=== PATIENT | male | born 1950 | race Caucasian/White ===

== ENCOUNTER → 2018-02-07 02:33 | Outpatient (CLI) | payer MEDICARE, OTHER, SELFPAY ==
[2018-02-07 11:27] LABS: Abs Immature Grans 0.03 k/cumm (0.0-0.09); Absolute Basophil Count 0.03 k/cumm (0.0-0.2); Absolute Eosinophil Count 0.18 k/cumm (0.0-0.7); Absolute Lymphocyte Count 1.61 k/cumm (1.2-3.4); Absolute Monocyte Count 0.46 k/cumm (0.11-0.7); Absolute Neutrophil Count 5.44 k/cumm (1.2-6.7); Basophils % 0.4; Eosinophils % 2.3; HCT 45.7 % (40.0-50.0); HGB 14.8 g/dL (13.5-17.5); Immature Grans % 0.4; Lymphocytes % 20.8; Mean Corp. HGB Concentration 32.4 g/dL (32.0-36.0); Mean Corpuscular Volume 92.5 fL (80-95); Mean Platelet Volume 10.8 fL (8.0-11.0); Monocytes % 5.9; Neutrophils % 70.2; Platelet Count 170 x1000/uL (130-400); RBC 4.94 m/cumm (4.50-6.00); White Blood Cell Count 7.75 k/cumm (4.4-10.8)
[2018-02-07 11:43] LABS: ALT 38 U/L (12-78); AST 17 U/L (15-37); Albumin 3.8 g/dL (3.4-5.0); Alkaline Phosphatase 75 U/L (46-116); Anion Gap 11.5 mmol/L (3-11); BUN 19 mg/dL (7-18); Bilirubin, Total 0.7 mg/dL (0.2-1.0); CO2 23.5 mmol/L (21.0-32.0); CREATININE 0.97 mg/dL (0.70-1.30); Chloride 105 mmol/L (98-107); Cholesterol 199 mg/dL (50-200); Glucose 128 mg/dL (70-100); HDL Cholesterol 41 mg/dL (40-60); LDL CHOLESTEROL 90 mg/dL (<100); Potassium 4.4 mmol/L (3.5-5.1); Sodium 140 mmol/L (136-145); TSH (W/Ref FT4) 2.03 uIU/mL (0.358-3.74); Total Protein 6.9 g/dL (6.4-8.2); Triglyceride 406 mg/dL (30-150)
[2018-02-07 12:02] LABS: Calcium 8.8 mg/dL (8.5-10.1)
== END ==
PROVIDERS: PCP Internal Medicine; Visit Provider Internal Medicine
DX: E78.5 Hyperlipidemia, unspecified (principal); D64.9 Anemia, unspecified; I10 Essential (primary) hypertension; G47.33 Obstructive sleep apnea (adult) (pediatric); E10.9 Type 1 diabetes mellitus without complications
CPT/HCPCS: 36415; 80053; 80061; 83721; 83036; 84443; 85025

== ENCOUNTER 2018-08-07 02:25 | Outpatient (CLI) | payer MEDICARE, OTHER, SELFPAY ==
[2018-08-07 10:54] LABS: Hemoglobin A1C 7.1 % (4.5-6.2)
[2018-08-07 11:03] LABS: ALT 39 U/L (12-78); AST 22 U/L (15-37); Albumin 3.6 g/dL (3.4-5.0); Alkaline Phosphatase 71 U/L (46-116); Anion Gap 11.3 mmol/L (3-11); BUN 17 mg/dL (7-18); Bilirubin, Total 1.2 mg/dL (0.2-1.0); CO2 23.7 mmol/L (21.0-32.0); CREATININE 1.02 mg/dL (0.70-1.30); Calcium 8.7 mg/dL (8.5-10.1); Chloride 104 mmol/L (98-107); Cholesterol 201 mg/dL (50-200); Glucose 143 mg/dL (70-100); HDL Cholesterol 45 mg/dL (40-60); LDL CHOLESTEROL 96 mg/dL (<100); Potassium 4.5 mmol/L (3.5-5.1); Sodium 139 mmol/L (136-145); Total Protein 6.8 g/dL (6.4-8.2); Triglyceride 327 mg/dL (30-150)
[2018-08-08 09:58] LABS: PSA, Screening 0.7 ng/ml (0-4.5)
== END 2018-08-07 02:45 ==
PROVIDERS: PCP Internal Medicine; Visit Provider Internal Medicine
DX: E11.8 Type 2 diabetes mellitus with unspecified complications (principal); E78.5 Hyperlipidemia, unspecified; J34.89 Other specified disorders of nose and nasal sinuses; Z12.5 Encounter for screening for malignant neoplasm of prostate
CPT/HCPCS: 36415; 80053; 80061; 83721; 84153; 83036

== ENCOUNTER 2018-08-09 13:41 | Outpatient (CLI) | payer MEDICARE, OTHER, SELFPAY ==
--- NOTE | 2018-08-09 10:30 | DI.RAD_ITS ---
SYMPTOMS/DIAGNOSIS: LEFT HAND PAIN X 6 MONTHS, M79.802 LEFT HAND: Three views. No priors. At the 1st carpometacarpal joint, there is joint space narrowing. There are also large osteophytes present. At the interphalangeal joints of the hand, there is mild periarticular spurring. The findings are most marked at the distal interphalangeal joint of the middle finger and the interphalangeal joint of the thumb. No acute fracture, dislocation, lytic or sclerotic lesion is seen. The soft tissues are unremarkable. IMPRESSION: Osteoarthritis of the left hand.
[2018-08-09 12:36] LABS: Uric Acid 5.8 mg/dL (3.5-7.2)
== END 2018-08-09 14:01 ==
PROVIDERS: PCP Internal Medicine; Visit Provider Internal Medicine
DX: M79.645 Pain in left finger(s) (principal); M19.042 Primary osteoarthritis, left hand
CPT/HCPCS: 36415; 73130; 84550

== ENCOUNTER 2019-08-24 00:16 | Outpatient (CLI) | payer MEDICARE, OTHER, SELFPAY ==
[2019-08-24 11:12] LABS: Abs Immature Grans 0.02 k/cumm (0.0-0.09); Absolute Basophil Count 0.03 k/cumm (0.0-0.2); Absolute Eosinophil Count 0.19 k/cumm (0.0-0.7); Absolute Monocyte Count 0.41 k/cumm (0.11-0.7); Absolute Neutrophil Count 3.92 k/cumm (1.2-6.7); Basophils % 0.5; Eosinophils % 3.2; HCT 43.2 % (40.0-50.0); HGB 14.5 g/dL (13.5-17.5); Immature Grans % 0.3 %; Lymphocytes % 23.5; Mean Corp. HGB Concentration 33.6 g/dL (32.0-36.0); Mean Corpuscular Hemoglobin 30.8 pg (27.0-33.0); Mean Corpuscular Volume 91.7 fL (80-95); Mean Platelet Volume 9.7 fL (8.0-11.0); Monocytes % 6.9; Neutrophils % 65.6; Platelet Count 199 x1000/uL (130-400); RBC 4.71 m/cumm (4.50-6.00); RBC Distribution Width 13.8 % (11.8-14.1); White Blood Cell Count 5.97 k/cumm (4.4-10.8)
[2019-08-24 11:24] LABS: Hemoglobin A1C 7.5 % (3.8-5.6)
[2019-08-24 11:28] LABS: ALT 41 U/L (16-63); AST 20 U/L (15-37); Albumin 3.9 g/dL (3.4-5.0); Alkaline Phosphatase 68 U/L (46-116); Anion Gap 10.5 mmol/L (3-11); BUN 23 mg/dL (7-18); Bilirubin, Total 0.8 mg/dL (0.2-1.0); CO2 24.5 mmol/L (21.0-32.0); CREATININE 0.94 mg/dL (0.70-1.30); Chloride 104 mmol/L (98-107); Cholesterol 226 mg/dL (<200); Glucose 140 mg/dL (74-106); HDL Cholesterol 37 mg/dL (40-60); Potassium 4.6 mmol/L (3.5-5.1); Sodium 139 mmol/L (136-145); Total Protein 6.8 g/dL (6.4-8.2); Triglyceride 509 mg/dL (<150)
[2019-08-24 11:40] LABS: LDL CHOLESTEROL 91 mg/dL (<100)
== END 2019-08-24 00:36 ==
PROVIDERS: PCP Internal Medicine; Visit Provider Internal Medicine
DX: E11.9 Type 2 diabetes mellitus without complications (principal); E78.5 Hyperlipidemia, unspecified; I10 Essential (primary) hypertension; R50.9 Fever, unspecified
CPT/HCPCS: 36415; 80053; 80061; 83721; 83036; 85025

== ENCOUNTER → 2019-09-05 13:36 | Outpatient (BNVA) | payer MEDICARE, OTHER, SELFPAY ==
--- NOTE | 2019-09-10 07:28 | ROE_ITS ---
DATE OF PROCEDURE September 05, 2019 PREOPERATIVE DIAGNOSIS Suture granuloma. POSTOPERATIVE DIAGNOSIS Suture Granuloma. SURGEON Josette Wakefield M.D. ANESTHESIA Local. ESTIMATED BLOOD LOSS Less than 1 cc. COMPLICATIONS: The patient tolerated the procedure without complication. INDICATIONS The patient is a 69-year-old male seen at the request of his primary care physician today on 09/05/19 and is here today for removal of a suture granuloma. The patient had a hernia repair back in the s with mesh that was sewn in with Prolene. He has two s utures that he spit within the first year of his procedure and have been sore festering areas for t he last 20 plus years. He has had the previous one removed and is here today to have the second one r emoved. He has never spit any stitches other than these first two, and these showed up within the st year or two of the initial surgery. He has an obvious Prolene stitch protruding at approximately t he 4 o'clock position around his old suture site. The site appears intact and no further herniation. There are no signs are acute infection. Informed consent was obtained, explaining the risks and benefits of the procedure including, not limi josephine to bleeding, infection, scarring, infecting the mesh, complications of local anesthetic, spitting more sutures and other unforetold complications. The area is obvious and does not need to be marked. DESCRIPTION OF PROCEDURE The patient was placed in the supine position, prepped and draped in the usual sterile fashion using a ChloraPrep scrub solution. Time-out was done. He it is infiltrated with 10 cc of 1% lidocaine plain with bicarb. The old suture site, which shows chronically infected tissue was excised and the suture was removed. The patient wishes to have the suture so he can show his , and it was cleaned off and placed in a sterile bio bag. All the nonviable tissue was removed. There was minimal bleeding. Pressure was held . Closed with two stitches of #3-0 Prolene. A sterile compression dressing is applied. The patient ca n come back in 10 days to have the sutures removed, or his sister who is an OR nurse can remove them for him in 10 days' time, which would be TuesdaySeptember 13. He can use ice and ibuprofen or Tylenol for pain. He was given instructions in would care activity and warning signs. He can come in on September 13 and have us evaluate the wound or just have his sister do it. If he has any questions or concerns to please contact the office.
== END ==
PROVIDERS: PCP Internal Medicine; Referring Provider Internal Medicine; Visit Provider Surgery
DX: T81.89XA Other complications of procedures, not elsewhere classified, initial encounter (principal); M60.28 Foreign body granuloma of soft tissue, not elsewhere classified, other site
CPT/HCPCS: 10120; 99202

== ENCOUNTER 2019-12-12 02:26 | Outpatient (CLI) | payer MEDICARE, OTHER, SELFPAY ==
[2019-12-12 09:26] LABS: Hemoglobin A1C 6.9 % (3.8-5.6)
[2019-12-12 10:05] LABS: Cholesterol 211 mg/dL (<200); HDL Cholesterol 36 mg/dL (40-60); Triglyceride 529 mg/dL (<150)
[2019-12-12 10:16] LABS: LDL CHOLESTEROL 78 mg/dL (<100)
== END 2019-12-12 02:46 ==
PROVIDERS: PCP Nurse Practitioner; Visit Provider Nurse Practitioner
DX: E11.65 Type 2 diabetes mellitus with hyperglycemia (principal); I10 Essential (primary) hypertension; E78.5 Hyperlipidemia, unspecified; R33.9 Retention of urine, unspecified
CPT/HCPCS: 36415; 80061; 83721; 83036; 84154

== ENCOUNTER 2020-01-17 10:07 | Outpatient (CLI) | payer MEDICARE, OTHER, SELFPAY ==
--- NOTE | 2020-01-17 13:15 | DI.RAD_ITS ---
EXAM: XR FOOT LT COMPLETE CLINICAL HISTORY: contusion left foot,[id number]. TECHNIQUE: 2D digital imaging was performed. COMPARISON: No exams were available for comparison FINDINGS: BONES: No acute fracture is present. No bony destructive lesion is seen. JOINTS: No dislocation present. SOFT TISSUE: Normal. IMPRESSION: Unremarkable radiographs of the left foot. DATA REPOSITORY: RADIATION DOSE DELIVERED:
== END 2020-01-17 10:27 ==
PROVIDERS: PCP Nurse Practitioner; Visit Provider Nurse Practitioner
DX: S90.32XA Contusion of left foot, initial encounter (principal)
CPT/HCPCS: 73630

== ENCOUNTER → 2020-01-25 10:16 | Outpatient (BNVA) | payer MEDICARE, OTHER, SELFPAY | PROVIDERS: PCP Nurse Practitioner; Referring Provider Nurse Practitioner; Visit Provider Physical Therapy Assistant | DX: Z12.11 Encounter for screening for malignant neoplasm of colon (principal); Z86.010 Personal history of colon polyps; I10 Essential (primary) hypertension; E11.9 Type 2 diabetes mellitus without complications ==

== ENCOUNTER 2020-06-03 03:37 | Outpatient (CLI) | payer MEDICARE, OTHER, SELFPAY ==
[2020-06-03 12:48] LABS: Calculated LDL 93 mg/dL (<100); Cholesterol 200 mg/dL (<200); HDL Cholesterol 42 mg/dL (40-60); Triglyceride 328 mg/dL (<150)
[2020-06-03 12:57] LABS: Hemoglobin A1C 7.3 % (<5.7)
== END 2020-06-03 03:57 ==
PROVIDERS: PCP Nurse Practitioner; Visit Provider Nurse Practitioner
DX: E11.65 Type 2 diabetes mellitus with hyperglycemia (principal); E78.2 Mixed hyperlipidemia
CPT/HCPCS: 36415; 80061; 83036

== ENCOUNTER → 2020-07-04 08:51 | Outpatient (BNVA) | payer MEDICARE, OTHER, SELFPAY | PROVIDERS: PCP Nurse Practitioner; Referring Provider Nurse Practitioner; Visit Provider Physical Therapy Assistant | DX: Z12.11 Encounter for screening for malignant neoplasm of colon (principal); Z86.010 Personal history of colon polyps; I10 Essential (primary) hypertension ==

== ENCOUNTER 2020-07-25 02:02 | Outpatient (CLI) | payer MEDICARE, OTHER, SELFPAY ==
[2020-07-26 11:29] LABS: COVID-19 RT-PCR UVMMC Result Negative (Negative)
== END 2020-07-25 02:03 | disposition home or self-care (01) ==
LOC: LBO 02:03
PROVIDERS: PCP Nurse Practitioner; Visit Provider Surgery
DX: Z20.822 Contact with and (suspected) exposure to COVID-19 (principal); Z01.818 Encounter for other preprocedural examination
CPT/HCPCS: U0003; U0005

== ENCOUNTER 2020-07-29 08:24 | Day surgery (SDC) | payer MEDICARE, OTHER, SELFPAY ==
[2020-07-29 08:35] VITALS: BP 149/66; PULSE 83; RESP 18; TEMP 36.4; O2SAT 95
[2020-07-29] MEDS: Lactated Ringers 1,000 ML 80 ML IV (09:08)
--- NOTE | 2020-07-29 10:10 | BOWEL_PTH ---
PATIENT: Vince Vazquez I LOC: [facility] U#:[id number] AGE/SX: 69/M ROOM: RE07/29/[address]: Josette Wakefield : 1950 BED: DIS: 07/29/2020 SPEC #: [id number] RECD: 07/29/20 12:07 STATUS: RAJINDER REAmber #: [id number] GIOVANNI: 07/29/20 10:[address]: Josette Wakefield DEPT: Surgical Specimen RECD BY: Olga Smith ENTERED: 07/29/20 12:08 SP TYPE: Bowel OTHR DR: Rhonda Mesa, PhD [employer] Tissues: 1 - BIOPSY BOWEL 2 - BIOPSY BOWEL Procedures: GROSS AND MICRO LEVEL 4 Comments: [id number]
--- NOTE | 2020-07-29 10:55 | W.COLOREPORT ---
Date of service: 07/29/20 Time of Service: 10:55 Colonoscopy Report Date of procedure: 07/29/20 Pre-op diagnosis general: A. polyps Post-op diagnosis procedure note: same (and tics- moderate ) Procedure: polypectomy x5 Surgeon: Josette Wakefield Anesthesia proc note operative: GETA Estimated blood loss (mL): 3 Pathology: other Complications: None Disposition: same day Prep: Miralax/Dulcolax Retraction Time: 30 mins Procedure Description: After informed consent was obtained the patient was taken to the procedure room and placed in a left decubitous position. Monitors were applied and a time out was done. The patients name, date of , procedure, allergies to medications and metal in their body was reviewed. The patient was then sedated. Once sedated and comfortable a rectal exam was done. External exam was normal. Internal exam revealed a normal sphincter tone and no palpable masses. The scope was then introduced and retrofelexed. No internal hemorrhoids were identified. The scope was then advanced to the cecum w/out difficulty. The colon has poor tone. The TI and appendiceal orifice were identified. The prep was adequate. The scope was then slowly retracted over 30 minutes back into the rectum. He has multiple polyps that are reviewed. He has x2 .5 mm polyps they removed with a hot polypectomy forcep in a single bite. He has a 0.75 cm polyp in the cecum, that is slightly pedunculated, and removed with 2 bites of a hot forcep. He has a flat 1 cm polyp on a fold in the cecum that is removed with a hot snare. All specimens are retrieved there is no significant bleeding noted. The snared area does not require clip. He has another polyp at 70 cm that is 0.5 cm flat that is removed with a hot polypectomy forcep. He has moderate to severe diverticula that are confined to the sigmoid colon. There is no signs of active bleeding or infection.. His colon is somewhat floppy and does not have The scope was removed and the patient was woken up and taken back to Same day surgery in stable condition. The patient tolerated the procedure well and there were no immediate complications. Follow up: The patient should follow up in 3 years if still healthy for anesthesia, unless they develop changes in bowel habits or other new gastrointestinal complaints.
--- NOTE | 2020-07-29 11:05 | PDOC.DSDIS_ITS ---
Discharge Plan Disposition Patient Disposition: HOME Condition: Good Discharge Details Reason For Visit: colon scope Attending Provider: Josette Wakefield Primary Care Provider: Rhonda Mesa Home Meds and New Rx's Prescriptions: Continued multivitamin Tablet 1 tab PO DAILY RF: 0 vitamin B complex [B Complex-Vitamin B12] Tablet 1 tab PO DAILY RF: 0 omega 1-vgs-gsp-fish oil [Fish Oil] 1,000 mg (120 mg-180 mg) capsule 1 cap PO DAILY RF: 0 ascorbic acid (vitamin C) 1,000 mg tablet 1 gm PO DAILY RF: 0 Shingrix (PF) 50 mcg/0.5 mL suspension for reconstitution 0.5 ml IM ONCE Qty: 1 RF: 1 (DME) FreeStyle Lite Strips 1 EACH strip 1 ea Miscellaneous DAILY Qty: 100 RF: 3 (DME) lancets [FreeStyle Lancets] 1 EACH misc 1 ea Miscellaneous DAILY Qty: 100 RF: 3 atorvastatin [Lipitor] 80 mg tablet 80 mg PO DAILY Qty: 90 RF: 4 lisinopril 10 mg tablet 10 mg PO DAILY Qty: 90 RF: 3 metformin 1,000 mg tablet 1,000 mg PO BID Qty: 180 RF: 3 glyburide 5 mg tablet 10 mg PO DAILY Qty: 180 RF: 3 Discontinued polyethylene glycol 3350 17 gram/dose powder 238 g PO ONCE Qty: 238 RF: 0 bisacodyl [Dulcolax (bisacodyl)] 5 mg tablet,delayed release (DR/EC) 5 mg PO ONCE Qty: 4 RF: 0 ibuprofen 200 mg tablet 800 mg PO ONCE PRNRF: 0 naproxen [EC-Naproxen] 500 mg tablet,delayed release (DR/EC) 500 mg PO Q12H PRN (Reason: pain) Qty: 40 RF: 0 aspirin [Lo-Dose Aspirin] 81 MG tablet,delayed release (DR/EC) 81 mg PO DAILY RF: 0 Discharge Instructions Additional Instructions: Findings:x5 polyps. Will send a letter in 3-4 weeks with pathology results. Moderate diverticula. Make sure you are moving your bowels on a regular/daily basis and not straining. Follow up:repeat scope in 3 yrs time, if still healthy for anesthesia. Please call if you develop: fevers >101.5 Nausea or Vomiting Abdominal pain that is not transient DAY SURGERY UNIT POST COLONOSCOPY INSTRUCTIONS 1. Because there will be medication in your system for the next 24 hours, you may feel a little sleepy. Your coordination will be affected. Therefore: a. Do not drive or operate dangerous equipment for 24 hours. b. Do not drink alcohol beverages for 24 hours (not even beer). c. Plan to go home and rest for the day. 2. Generally there are no restrictions on your activity after a day or so has gone by, but you may feel a bit fatigued for a few days. 3 After you arrive home you may have a light meal and return to a normal diet as you can tolerate it without feeling sick to your stomach. 4. After surgery, you may feel pain or discomfort. This should be only transient, but if it persists please contact your doctor. 5. If there are any questions regarding the findings of your procedure, please feel free to contact your doctor. 6. If you are unable to contact your doctor with a problem, contact the hospital at [phone]. 7. Continue all your regular medications unless directed otherwise. I understand the above instructions and have no questions. Signature of Patient or Responsible Adult Escort Date/Time Name of Responsible Adult Escort Signature of Nurse Date/Time DIVERTICULAR DISEASE OVERVIEW ? A diverticulum is a pouch-like structure that can form through points of weakness in the muscular wall of the colon (ie, at points where blood vessels pass through the wall). Diverticulosis affects men and women equally. The risk of diverticular disease increases with age. It occurs throughout the world but is seen more commonly in developed countries. WHAT IS DIVERTICULAR DISEASE? Diverticulosis ? Diverticulosis merely describes the presence of diverticula. Diverticulosis is often found during a test done for other reasons, such as flexible sigmoidoscopy, colonoscopy, or barium enema. Most people with diverticulosis have no symptoms and will remain symptom free for the rest of their lives. A person with diverticulosis may have diverticulitis, or diverticular bleeding. Diverticulitis ? Inflammation of a diverticulum (diverticulitis) occurs when there is thinning and breakdown of the diverticular wall. This may be caused by increased pressure within the colon or by hardened particles of stool, which can become lodged within the diverticulum. The symptoms of diverticulitis depend upon the degree of inflammation present. The most common symptom is pain in the left lower abdomen. Other symptoms can include nausea and vomiting, constipation, diarrhea, and urinary symptoms such as pain or burning when urinating or the frequent need to urinate. Diverticulitis is divided into simple and complicated forms. ?Simple diverticulitis, which accounts for 75 percent of cases, is not associated with complications and typically responds to medical treatment without surgery. ?Complicated diverticulitis occurs in 25 percent of cases and usually requires surgery. Complications associated with diverticulitis can include the following: ?Abscess ? a localized collection of pus ?Fistula ? an abnormal tract between two areas that are not normally connected (eg, bowel and bladder) ?Obstruction ? a blockage of the colon ?Peritonitis ? infection involving the space around the abdominal organ ?Sepsis ? overwhelming body-wide infection that can lead to failure of multiple organs Diverticular bleeding ? Diverticular bleeding occurs when a small artery located within a diverticulum is eroded and bleeds into the colon. Diverticular bleeding usually causes painless bleeding from the rectum. In approximately 50 percent of cases, the person will see maroon or bright red bl ood with bowel movements. Is bleeding with a bowel movement normal? ? It is not normal to see blood in a bowel movement; this can be a sign of several conditions, most of which are not serious (eg, hemorrhoids) but some of which are serious and require immediate treatment. Anyone who sees blood after a bowel movement should consult with their healthcare provider to determine if further testing or evaluation is needed. DIVERTICULOSIS AND DIVERTICULITIS DIAGNOSIS ? Diverticulosis is often found during tests performed for other reasons. ?Barium enema ? This is an x-ray study that uses barium in an enema to view the outline of the lower intestinal tract. This is an older test and has been largely replaced by computed tomography (CT) scan. ?Flexible sigmoidoscopy ? This is an examination of the inside of the sigmoid colon with a thin, flexible tube that contains a camera. ?Colonoscopy ? This is an examination of the inside of the entire colon. ?CT scan ? A CT scan is often used to diagnose diverticulitis and its complications. If diverticulitis (not just diverticulosis) is suspected, the above three tests should not be used because of the risk of perforation. TREATMENT Diverticulosis ? People with diverticulosis who do not have symptoms do not require treatment. However, most clinicians recommend increasing fiber in the diet, which can help to bulk the stools and possibly prevent the development of new diverticula, diverticulitis, or diverticular bleeding. Fiber is not proven to prevent these conditions in all patients but may help to control recurrent episodes in some. Increase fiber ? Fruits and vegetables are a good source of fiber. Fiber content of packaged foods can be calculated by reading the nutrition label. Seeds and nuts ? Patients with diverticular disease have historically been advised to avoid whole pieces of fiber (such as seeds, corn, and nuts) because of concern that these foods could cause an episode of diverticulitis. However, this belief is completely unproven. We do not suggest that patients with diverticulosis avoid seeds, corn, or nuts. Diverticulitis ? Treatment of diverticulitis depends upon how severe your symptoms are. Home treatment ? If you have mild symptoms of diverticulitis (mild abdominal pain, usually left lower abdomen), you can be treated at home with a clear liquid diet and oral antibiotics. However, if you develop one or more of the following signs or symptoms, you should seek immediate medical attention: ?Temperature >100.1?F (38?C) ?Worsening or severe abdominal pain ?An inability to tolerate fluids Hospital treatment ? If you have moderate to severe symptoms, you may be hospitalized for treatment. During this time, you are not allowed to eat or drink; antibiotics and fluids are given into a vein. If you develop an abscess of the colon, you may require drainage of the abscess (usually performed by placing a drainage tube across the abdominal wall) or by surgically opening the affected area. Surgery ? If you develop a generalized infection in the abdomen (peritonitis), you will usually require an emergency operation. A two-part operation may be necessary in some cases. ?The first operation involves removal of the diseased colon and creation of a colostomy. A colostomy is an opening between the colon and the skin, where a bag is attached to collect waste from the intestine. The lower end of the colon is temporarily sewed closed to allow it to heal. ?Approximately three to six months later, a second operation is performed to reconnect the two parts of the colon and close the opening in the skin. You are then able to empty your bowels through the rectum. Sometimes patients require up to a year to recover from the first operation, depending on how sick they were. In non-emergency situations, the diseased area of the colon can be removed and the two ends of the colon can be reconnected in one operation, without the need for a colostomy. Surgery versus medical therapy ? An operation to remove the diseased area of the colon may be necessary if you do not improve with medical therapy. After an episode of uncomplicated diverticulitis, elective surgery is generally not required as the risk of another attack or requiring emergency surgery is low. However, patients with persistent symptoms attributable to diverticulitis, a history of complicated diverticulitis, or a compromised immune system should be evaluated for possible surgery to prevent another attack. In such patients, another attack has been associated with a higher risk of complications or . Of course, the decision will also depend in part upon your other medical conditions and ability to undergo surgery. In many cases, an elective operation can be performed laparoscopically, using small incisions, rather than the typical vertical (up and down) abdominal incision. Laparoscopic surgery usually allows you to recover more quickly and shortens the hospital stay. After diverticulitis resolves ? After an episode of diverticulitis resolves, if you have not had a recent colonoscopy, the entire length of the colon should be evaluated to determine the extent of disease and to rule out the presence of abnormal lesions such as polyps or cancer. Recommended tests include colonoscopy, barium enema and sigmoidoscopy, or CT colonography. Diverticular bleeding ? Most cases of diverticular bleeding resolve on their own. However, some people will need further testing or treatment to stop bleeding, which may include a colonoscopy, angiography (a treatment that blocks off the bleeding artery), bleeding scan, or surgery. DIVERTICULAR DISEASE PROGNOSIS Diverticulosis ? Over time, diverticulosis may cause no problems or it may cause episodes of bleeding and/or diverticulitis. Approximately 15 to 25 percent of people with diverticulosis will develop diverticulitis, while 5 to 15 percent will develop diverticular bleeding. Diverticulitis ? Approximately 85 percent of people with uncomplicated diverticulitis will respond to medical treatment, while approximately 15 percent of patients will need an operation. After successful treatment for a first attack of diverticulitis, one-third of patients will remain asymptomatic, one- third will have episodic cramps without diverticulitis, and one-third will go on to have a second attack of diverticulitis. The prognosis tends to remain similar following a second attack of diverti culitis. Only 10 percent of people remain symptom-free after a second attack. Subsequent attacks tend to be of similar severity, not increasing in severity as previously believed. High Fiber Diet What is Dietary Fiber? All fiber comes from plants, bushes, joao or trees. Of course, the ones that we eat provide us with fruits, vegetables and grains. There are many different types of fiber but the three that are most important to the health of the body are: Insoluble Fiber This fiber does not dissolve in water, nor is it fermented by the bacteria residing in the colon. Rather, it retains water and in so doing, helps to promote a larger, bulkier and more regular bowel activity. This, in turn, may be important in preventing disorder such as diverticulosis and hemorrhoids, and in sweeping out certain toxins and cancer causing carcinogens. Sources of insoluble fiber are: ? whole grain wheat and other whole grains ? corn bran, including popcorn, unflavored and unsweetened ? nuts and seeds ? potatoes and the skins from most fruits from trees such as apples, bananas and avocados ? many green vegetables such as green beans, zucchini, celery and cauliflower ? some fruit plants such as tomatoes and kiwi Soluble Fiber These fibers are fermented or used by the colon bacteria as a food source or nourishment. When these good bacteria grow and thrive, many health benefits occur in both the colon and the body. Soluble fiber is present in some degree in most edible plant foods, but the ones with the most soluble fiber include: ? legumes such as peas and most beans, including soybeans ? oats, rye and barley ? many fruits such as berries, plums, apples bananas and pears ? certain vegetables such as broccoli and carrots ? most root vegetables ? psyllium husk supplement products Prebiotic Soluble Fiber These are relatively newly discovered soluble plant fibers. The technical name for this fiber is inulin or fructan. When these soluble fibers are fermented by the good colon bacteria, some further significant health benefits have been shown to occur by research in many medical centers. These soluble prebiotic fibers occur in significant amounts in: ? asparagus ? yams ? onions ? garlic ? bananas ? leeks ? agave ? chicory and other root vegetables such as [place] artichokes ? wheat, rye and barley (smaller amounts) Benefits of a High Fiber Diet The health benefits of a high fiber diet, consumed on a regular basis and reaching recommended amounts (below), are now fairly well-defined. There are some additional benefits in the early research stage with the prebiotic soluble fibers. What is now known regarding a high fiber diet include: Bowel Regularity A high fiber diet promotes regularity with a softer, bulkier and regular stool pattern. This decreases the chance of hemorrhoids, diverticulosis and perhaps colon cancer. Cholesterol and Reduced Triglycerides The soluble fibers are the ones that will reduce cholesterol levels when used on a regular basis. Psyllium husk and prebiotic soluble fiber will also reduce cholesterol. They may also reduce the incidence of coronary heart disease. Oats, flax seeds and legumes or beans are the recommended fibers. Colon Polyps and Cancer It is still not certain if a high fiber diet helps prevent colon cancer. Considerable research suggests that this may occur. Certainly it makes sense to increase regularity and so speed the movement of cancer causing carcinogens through the bowel. In addition, reducing a heavy meat diet reduces the bile flow from the liver in a favorable way. This, too, reduces the amount of carcinogens that reach and are manufactured in the colon. Finally, a high fiber diet, including prebiotic soluble fiber, increases the integrity and health of the wall of the colon. The risk of cancer may be reduced. Colon Wall Integrity A high fiber diet changes the bacterial makeup of the colon toward a more favorable balance. For instance, it is known that those people with obesity, diabetes type 2 and inflammatory bowel disease have a predominance of bad bacteria in the colon. This, in turn, may render the bowel wall weak and allow bacteria and, indeed, even toxins to seep through. A high fiber diet with a modest reduction in animal and meat products may return the bacterial makeup to a more positive balance. This, in particular, has been seen when the soluble fiber prebiotics are added to the diet. Blood Sugar Soluble fiber such as in legumes (beans), oats and in prebiotic fibers slows the absorption of blood sugar and so helps regulate the sugar in the blood. Insoluble fiber on a regular basis is associated with reduced risk of type 2 diabetes. Weight Loss High fiber diets are more filling and give a sense of fullness sooner than an animal and meat based diet does. In addition, the soluble prebiotic fibers have been shown to turn off the hunger hormones produced in the wall of the gut and to increase the hormones that give a sense of fullness. Those hormones are made in the wall of the gut. New medical research has shown that the bacterial makeup in the colon in overweight people is abnormal to the extent that they manufacture and absorb almost twice the number of calories through the colon wall as do normals. Prebiotic fibers (below) will help change this hormonal balancein a favorable way. Bacteria and the Function of the Colon The colon finishes the digestive process. Hopefully, the waste products move through in a nice regular manner. Insoluble fibers help this process by retaining water and so producing a bulkier, softer stool, which is easy to pass. The additional role of the colon is to provide a home for an enormous number of micro-organisms, mostly bacteria. Recent research has shown that there are over 1,000 species of bacteria with a total bacterial count ten times the number of cells in the body. These bacteria play a major role in keeping the colon wall itself healthy. In addition, these good bacteria produce a very strong immune system for the body. They significantly increase calcium absorption and bone density. They provide other documented benefits. It is the soluble fibers in the diet that are so effective in stimulating the growth of good colon bacteria. How Much is Enough? The amount of fiber in food is measured in grams. National nutritional authorities recommend the following amounts of dietary fiber daily. Under Age 50 Over Age 50 Men 38 grams 30 grams Women 25 grams 21 grams For a week or so, it is best to tally the amount of fiber you are consuming. Boxed and packaged foods will have the amount of fiber per serving on the nutrition label. Which Fibers and Which Foods are Best? As noted, healthy fiber is only found in plants. The three major categories are whole grains, fruits and vegetables. Whole Grains Wheat, oats, barley, wild or brown rice, amaranth, buckwheat, bulgur, corn, millet, quinoa, rye, sorghum, teff and triticals. By far, wheat, oats and wild or brown rice are most common. Always buy whole grain products. White bread, baked goods and rolls almost always are made from wheat flour. Wheat flour is white because most of the fiber, vitamins and other nutrients have been removed. Try not buy enriched grains. What this means is that simple white flour has had vitamins added to it by the shank inspector. The word, enriched, implies a good and healthy product. On the contrary, enriched means that most of the fiber has been removed and a few vitamins added. Fruits Fruits come from trees such as apple and pear or from bushes or joao. You should eat a wide variety of fruits, preferably with every meal. In many cases, the skin of a fruit such as apple will contain much of the insoluble fiber while the pulp contains most of the soluble fiber. To the extent possible, buy organic fruits as these will have little or no pesticides. Always wash fruit. Vegetables Eat a wide variety of vegetables. They should be a mainstay of lunch and dinners. Frozen vegetables retain as much nutrition and fiber as fresh vegetables. As with fruit, try to buy organic to reduce any residual pesticide ingestion. Wash fresh vegetables thoroughly. Cruciferous vegetables such as broccoli, [place] sprouts and cauliflower contain certain chemicals such as sulforaphane. This substance has very strong anti-cancer properties and should be eaten frequently. Legumes, Beans, Peas and Soybeans These vegetables have plenty of soluble fiber and should be part of a varied vegetable intake. Beans, in particular, contain a certain type of fiber that may lead to harmless gas or bloating. Nuts and Seeds These are rich sources of fiber and are a good substitute for sweets such as candies and baked sweet goods. While nuts and seeds are rich in fiber, they also contain vegetable fat and so can and do add calories. Read the Labels As noted, fresh and frozen foods are usually better. They have good nutrition and few, if any, chemicals added to them. When buying packaged foods and, in particular grains, look for three things: ? The first word on the label should be whole, such as whole wheat or whole grain. ? Check out the calories and the amount of fiber in a serving. ? How many and what other additives or chemicals are added. Fewer is always better. Do you know what each additive does? Some are added not for the benefit of the registered client associate but rather for manufacturers. These could and do include sugar, artificial flavor, chemicals to prevent oxidation and spoilage, emulsifiers to blend the product. You have to be a senior manufacturing technician. Fiber Facts, Nuggets and Pearls ? For breakfast you can easily get the day started well by using a high fiber, whole grain cereal. Check the labels. Add fruit such as blueberries and bananas. If you are an egg eater, use whole wheat or grain toast. Adding wheat germ gives you a good fiber kick. ? Always use whole grain or wheat with rolls and sandwiches. Does your fast food store not have them? Perhaps you look elsewhere. Eating an occasional black almaraz or veggie burger provides variety. ? Snacks should consist of fruit and/or nuts. While nuts are loaded with fiber, they are an energy rich food, meaning they have a lot of calories in a small packet. ? Fruit juices should contain pulp. Clear juices such as clear orange, pear or apple juice contain little fiber and have a lot of fructose. Prune juice is usually high in fiber. ? Homemade soups ? adding fresh or frozen vegetables to a chicken or vegetable stock is a good way to start homemade soup. ? Salads ? adding cooked and then chilled vegetables provide great flavoring to almost any salad. Remember, a cruz salad has lots of cooked corn in it. Small slices of apples or oranges and nuts such as chopped walnuts or sliced almonds always adds taste, variety and fiber to almost any salad. ? Fruit ? Try to eat fruit of some type with almost every meal. ? Rethink how you place the various foods on your dinner plate. Reducing the portions of the meat or animal food portion to the side with equal or more portions of vegetables, legumes and fruits portion always allows for more fiber. There was never anything magic about making the meat or animal food portion the main part of the dinner plate. Eating from smaller plates can, over time, trick your mind and chcf habit of using a dinner plate. Again, there is nothing magic in an 11, 12, or 13 inch dinner plate. Fiber Supplements There are a variety of fiber supplements available on the food or pharmacy shelves. Psyllium This soluble plant fiber has been used in [place] for over 2,000 years. It is a soluble fiber with mucilage in it. This acts to retain a lot of water and also is fermented by colon bacteria. When 7 grams a day are used, it does lower cholesterol. Metamucil in various forms is psyllium. Methyl Cellulose All the cellulose products come from finely ground wood chips which are then treated in a variety of ways such as boiling in acids. Methyl cellulose is an insoluble fiber which does dissolve in water. It is also an emulsifier, meaning it blends oils and water. Citrucel is methyl cellulose (MC). MC may not be appropriate for Crohn?s disease or ulcerative colitis as several medical studies have shown that certain emulsifiers dissolve the mucous lining of the colon in animals prone to Crohn?s disease. This then allows bacteria to invade the underlying tissue. Inulin Inulin is a soluble prebiotic fiber found in many foods and which are fermented mostly in the left side of the colon. It is available in a supplement as generic inulin and in Fiber Choice. Oligofructose FOS These are also prebiotic fibers. They are fermented very quickly in the right side of the colon. Prebiotin This product is a combination of oligofructose, which feeds the bacteria in the right side of the colon and inulin, which does the same in the left side of the colon. There seems to be a benefit for this particular formula based on medical research. Prebiotic Soluble Fiber These may be the healthiest of all the soluble fibers. They grow in many plants and have had a great deal of research done on them in the last 10-15 years. These fibers are found in asparagus, yams and other root vegetables such as chicory, garlic, onion, leeks and in smaller amounts in wheat. This research has shown the following: ? Increase in good and decrease in bad colon bacteria ? Increase calcium absorption and enhanced bone mass ? Enhanced immune system ? Appetite and weight control by changing the hormone appetite signals to the brain ? May decrease colon cancer incidence ? Reduce or correct a leaky colon Eating a wide variety of plant food up to the recommended amount will likely give you enough prebiotic fiber. Supplements such as Prebiotin can be added to the diet. Short Chain Fatty Acids (SCFA) Some rather remarkable research findings have shown that one of the benefits of ingesting a lot of soluble fiber, in particular the prebiotic ones, results in larger amounts of SCFAs in the colon. These SCFAs are made by the good bacteria in the colon such as Bifidobacter and Lactobacillus. These small molecules have been shown to do the following: ? Enhance the health and integrity of the colon wall ? Provide nourishment for the cells that actually line the colon ? Increases the acidity of the colon which is a very real health benefit ? Stabilize blood sugar for diabetics ? Reduce blood cholesterol and triglyceride ? Significantly enhance immunity ? May be a benefit for Crohn?s disease and ulcerative colitis patients Fiber and Gas Everyone has intestinal gas and that is a good thing. It means that bacteria, hopefully the good ones, are thriving. The normal amount of flatus passed each day depends on sex and what is eaten. The normal number of flatus is 10-20 times a day. When the bacteria that make intestinal gases are growing, it also means that other good bacteria are using the same fibers to grow and produce multiple health benefits, including the production of healthy short-chain fatty acids. These substances are produced quietly in the colon and produce many health-related outcomes. Soluble fiber should always be used in a gradual manner. If too much is cons umed at any one time, then excess, but harmless, intestinal gas can occur. People with irritable bowel syndrome are particularly prone to bloating and mild cramping. In this instance, soluble fiber in the diet or supplement should be used in small doses and increased gradually. Finally, prebiotic fibers tend to cause the production of short-chain fatty acids which acidify the colon. This, in turn, reduces or stops the growth of bacteria that make the smelly hydrogen sulfide gases that produce noxious flatus. People who consume many vegetables with prebiotics or take a prebiotic fiber supplement often have non-odoriferous flatus. Fiber and Irritable Bowel Syndrome Irritable bowel syndrome (IBS) is one of the most common disorders of the lower digestive tract. The symptoms of IBS can be quite varied. They can be a mix of several symptoms such as constipation, diarrhea, crampy abdominal discomfort, bloating and gas. An attack of IBS can be triggered by emotional tension and anxiety, poor dietary habits and certain medications. It is now known that infections in the intestine can lead to long-term IBS symptoms. Increased amounts of fiber in the diet can help relieve the symptoms of irritable bowel syndrome by producing soft, bulky stools. This helps to normalize the time it takes for the stool to pass through the colon. Recent medical research with newer techniques has shown some surprising and dramatic findings for IBS patients. Specifically, there is a very significant and abnormal shift of bacteria from those that provide health benefits to those bad bacteria that we really do not want in the gut. The technical name for this bad group of bacteria is called Firmicutes. Along with this abnormal bacterial collection, there is a smoldering low-grade inflammation in the gut wall that may contribute to symptoms. The goal for IBS patients should be to gradually increase the soluble dietary fibers in the diet so as to promote the growth of good bacteria and so suppress the bad ones along with the associated inflammation. IBS patients need to be careful of the amount of soluble fiber they consume. The reason for this is that, while the good colon bacteria thrive on these fibers and produce health benefits, other gas-forming bacteria may generate excessive but harmless gas and subsequent bloating. Thus, soluble plant fibers or a dietary prebiotic supplement should be taken in small initial doses and then gradually increased to tolerance. Fiber and Colon Polyps/Cancer Colon cancer is a major health problem. This disease is most common in Western cultures. It is not seen very often in rural cultures where the diet is mostly plant based. Usually, colon cancer starts out as a colon polyp, a benign mushroom-shaped growth. In time it grows, and in some people it becomes cancerous. Colon cancer is usually always curable if polyps are removed when found or if surgery is performed at an early stage. It is now known that people can inherit the risk of developing colon cancer, but diet is important, too. As noted, there is a very low rate of colon cancer in residents of countries where grains are unprocessed and retain their fiber. It seems that in the Western world, cancer-containing agents (carcinogens) remain in contact with the colon wall for a longer time and in higher concentrations. So, a large bulky stool may act to dilute these carcinogens by moving them through the bowel more quickly. Less carcinogenic exposure to the colon may mean fewer colon polyps and less cancer. A very current review of the entire world?s literature on the effect of fiber on colon polyps and cancer prevention has shown rather clearly that for every 10 grams of fiber added to the diet, there is a 10% reduction in incidence of colon cancer. So the recommended 30 gram fiber diet would result in a 30% less chance of getting these tumors. There are also substances produced in the colon by the good bacteria that seem to retard certain pre-cancer factors from developing. They are called short- chain fatty acids (SCFA). See above for description of SCFAs. A high fiber diet increases these substances. So, the combination of dietary fiber and the p roduction of short-chain fatty acids have a clear health benefit. Fiber and Diverticulosis Prolonged, vigorous contraction of the colon over a long period of time may result in diverticulosis. This increased pressure causes small and, eventually, larger ballooning pockets to form. These pockets by themselves cause no problem. However, sometimes they become infected (diverticulitis) or even break open (perforate) causing infection or inflammation within the abdomen (peritonitis). A high fiber diet increases the bulk in the stool and thereby reduces the pressure within the colon. By so doing, the formation of pockets may be reduced or possibly even stopped. In the past, many physicians were fearful that seeds as in tomatoes, nuts or berries were harmful and could get inside these pockets and rattle around, causing damage. We now know that this has never been the case and that these foods contain lots of fiber and are actually beneficial for diverticulosis patients. Certain bulking agents such as psyllium are traditional types of bulk producing supplements. Psyllium is a soluble fiber. Combining it with insoluble fiber as in wheat bran or corn bran (no gluten) can enhance this bulking effect even more. A product containing a prebiotic, psyllium and wheat bran is probably a very good combination for bowel regularity. Prebiotin Regularity/Diverticulosis is one such product. Activity:: No lifting over 20 pounds or strenuous activity x72 hours. Diet:: Small light meals x24 hours. Discharge Orders Discharge Orders: Discharge Order (Routine); Ordered 07/29/20 Ordered By: Josette Wakefield DS: Diagnosis Discharge Diagnosis (1) Diverticula of colon: Status: Acute (2) Adenomatous polyps: Status: Acute
[2020-07-29 11:20] VITALS: BP 145/75; PULSE 71; RESP 16; TEMP 36.3; O2SAT 99
== END 2020-07-29 11:50 | disposition home or self-care (01) ==
PROVIDERS: PCP Nurse Practitioner; Visit Provider Surgery
PROC: 0DJD8ZZ Inspection of Lower Intestinal Tract, Via Natural or Artificial Opening Endoscopic (ICD-10-PCS; CPT 45378; principal; 2020-07-29 10:00)
DX: Z12.11 Encounter for screening for malignant neoplasm of colon (principal); D12.0 Benign neoplasm of cecum; K57.30 Diverticulosis of large intestine without perforation or abscess without bleeding; I10 Essential (primary) hypertension; E11.9 Type 2 diabetes mellitus without complications; G47.33 Obstructive sleep apnea (adult) (pediatric)
CPT/HCPCS: 45384; 45385; 45380; 88305; J2704

== ENCOUNTER 2020-12-16 02:57 | Outpatient (CLI) | payer MEDICARE, OTHER, SELFPAY ==
[2020-12-16 12:37] LABS: Potassium 4.4 mmol/L (3.5-5.1)
[2020-12-16 12:43] LABS: COMMENT (LAB VIEW ONLY) 117.14 mg/dL; Microalb ug/mg Crea 7.3 ug/mg Cr
[2020-12-16 13:18] LABS: Hemoglobin A1C 7.8 % (<5.7)
== END 2020-12-16 02:58 | disposition home or self-care (01) ==
LOC: LOS 02:58
PROVIDERS: PCP Nurse Practitioner; Visit Provider Nurse Practitioner
DX: E11.9 Type 2 diabetes mellitus without complications (principal); I10 Essential (primary) hypertension
CPT/HCPCS: 36415; 82043; 82565; 82570; 83036; 84132

== ENCOUNTER 2021-04-01 03:48 | Outpatient (CLI) | payer MEDICARE, SELFPAY ==
[2021-04-01 13:00] LABS: Hemoglobin A1C 7.6 % (<5.7)
[2021-04-01 13:18] LABS: Calculated LDL 66 mg/dL (<100); Cholesterol 183 mg/dL (<200); HDL Cholesterol 38 mg/dL (40-60); Triglyceride 398 mg/dL (<150)
== END 2021-04-01 03:49 | disposition home or self-care (01) ==
PROVIDERS: PCP Nurse Practitioner; Visit Provider Nurse Practitioner
DX: E11.8 Type 2 diabetes mellitus with unspecified complications (principal)
CPT/HCPCS: 36415; 80061; 83036

== ENCOUNTER 2021-04-16 02:16 | Outpatient (CLI) | payer MEDICARE, OTHER, SELFPAY ==
--- NOTE | 2021-04-16 09:00 | NS.NUTBLAN_ITS ---
Vince was referred to Medical [facility] for diabetes self management education. 5' 246 lbs BMI 34. Most recent A1C: 7.5%. DM meds: 1000 mg metformin BID, 10 mg glyburide. PMH: HLD, HTN, elevated triglycerides, DM2, obesity. Meds: lisinopril, statin, aspirin. 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 He eats mostly home grown food and follows a well balanced diet. He is here today as he wants to better understand how diabetes, diet and complications interrelate. He is also frustrated that he cannot lose weight. He shared that [place] the [place] was 61, and did no lose any weight. Current A1C in target based on multiple comorbidities and advanced age (Goal: <8.5% ). Current Dm meds providing adequate glycemic control. Vince tests is blood sugars in AM, typically they run 120-130 mg/dl. Reviewed blood sugar goals fasting and post prandial levels. Unclear etiology of elevated triglycerides as he does not consume alcohol or simple sugars in access. Diet is well balanced and focuses on complex carbs, lean protein and healthy fats. Suspect insulin resistance making weight loss difficult. Reviewed carb counting at meals and encouraged continued exercise daily of 30-45 minutes. No follow up planned at this time. Vince has my contact information if needs additional information.
== END 2021-04-16 02:17 | disposition home or self-care (01) ==
LOC: DS 02:16
PROVIDERS: PCP Nurse Practitioner; Visit Provider Dietitian, Registered
DX: E11.9 Type 2 diabetes mellitus without complications (principal); Z79.84 Long term (current) use of oral hypoglycemic drugs; I10 Essential (primary) hypertension; E78.5 Hyperlipidemia, unspecified; E66.9 Obesity, unspecified; Z71.3 Dietary counseling and surveillance
CPT/HCPCS: 97802

== ENCOUNTER → 2021-11-18 18:50 | Outpatient (CLI) | payer MEDICARE, OTHER, SELFPAY ==
--- NOTE | 2021-11-18 11:15 | DI.US_ITS ---
Exam(s) US RENAL EXAM: US RENAL CLINICAL HISTORY: r/o kidney stone, rt sided back pain, M54.9 dorsalgia TECHNIQUE: Ultrasound performed using standard protocol. COMPARISON: US STRESS ECHOCARDIGRAM {[id number]} from 05/06/2014 FINDINGS: Renal ultrasound was performed according to the usual protocol. Kidneys are normal in size and shape . There is no renal mass by ultrasound criteria. There is no hydronephrosis. There is small echogenic focus of the left renal midpole with posterior acoustic shadowing and twinkl e artifact, consistent with a small nonobstructing stone. Urinary bladder is unremarkable in appearance, pre and postvoid urinary bladder volume measurements a re 130 cc and 16 cc respectively. Ureteral jets were noted bilaterally. IMPRESSION: There is an apparent small nonobstructing left renal calculus. No other significant findings. DATA REPOSITORY:
== END ==
PROVIDERS: PCP Nurse Practitioner; Visit Provider Nurse Practitioner Family
DX: M54.89 Other dorsalgia (principal); N20.0 Calculus of kidney
CPT/HCPCS: 76770

== ENCOUNTER 2021-11-19 10:59 | Emergency (ER) | payer MEDICARE, OTHER, SELFPAY ==
--- OUTSIDE RECORDS SUMMARY | 2021-11-19 11:03 | XMS_ITS ---
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 Medications Name Status Start Date Stop Date ? ? aspirin 81 mg tablet Active ? Not availab le Take 1 tablet every day by oral route. atorvastatin 80 mg tablet Active ? Not av ailable Take 1 tablet every day by oral route. Fish Oil Active ? Not available daily glipizide ER 2.5 mg tablet, extended release 24 hr Active ? Not available lisinopril 10 mg tablet Active ? Not avai lable Take 1 tablet every day by oral route. metformin 1,000 mg tablet Active ? Not av ailable Take 1 tablet twice a day by oral route. multivitamin Active ? Not available 1 tab daily sulfamethoxazole Completed ? 04/05/2018 Vitamin B12 Active ? Not available daily zolpidem 5 mg tablet Completed ? 04/05/2018 Take 1 tablet by oral route. Problems Name Status Onset Date Source ? Nocturia Active 01/27/2018 ? 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 ? Type 2 Diabetes Mellitus Active ? ? Hyperlipidemia Active ? ? Obstructive Sleep Apnea Syndrome Active ? ? Hypertensive Disorder Active ? ? Angina Pectoris Active ? ? Coronary Arteriosclerosis Active ? ? Snoring Active ? ? Mantoux: Positive Active ? ? Procedures Date Name Performed by ? ? Hernia Repair Information not avai lable Notes: Incisional x2 04/05/2018 Polysomnogram [facility] [address] [place] [address] (Work Place) Results Lab Results None recorded. Past Encounters None recorded. Social History Tobacco Smoking Status Former Smoker Notes: teenage years, quit age 19 Vaccine List Vaccine Type COVID-19, mRNA, LNP-S, PF, 100 mcg/0.5 m L dose (Moderna) 06/17/2020?0.5 mL 07/14/2020?100 mcg Plan of Care Reminders Provider Appointments None recorded. ? ? Lab None recorded. ? ? Referral None recorded. ? ? Procedures None recorded. ? ? Surgeries None recorded. ? ? Imaging None recorded. ? ? Vitals 09/01/2018 08:30AM Office 30 Height Weight BMI Blood Pressure 179.07 cm 113.4 kg 35.4 kg/m2 149/69 mm[Hg] 06/26/2018 09:15AM Office 30 Height Weight BMI Blood Pressure 179.07 cm 113.4 kg 35.4 kg/m2 140/91 mm[Hg] 04/05/2018 09:00AM Office 30 Height Weight BMI Blood Pressure 179.07 cm 111.13 kg 34.7 kg/m2 130/79 mm[Hg] 01/27/2018 12:30PM New Patient 43 Height Weight BMI Blood Pressure 179.07 cm 111.27 kg 34.7 kg/m2 128/63 mm[Hg]
[2021-11-19 11:06] VITALS: PULSE 66; RESP 16; TEMP 36.9; O2SAT 96
--- NOTE | 2021-11-19 11:59 | ED.GENADUL_ITS ---
Discharge Plan Disposition Patient Disposition: HOME Condition: Stable Discharge Details Clinical Impression: Right flank pain Primary Care Provider: Rhonda Mesa ED Provider: Dimple Lezama Home Meds and New Rx's Prescriptions: No Action multivitamin Tablet 1 tab PO DAILY vitamin B complex [B Complex-Vitamin B12] Tablet 1 tab PO DAILY omega 1-puv-cbk-fish oil [Fish Oil] 1,000 mg (120 mg-180 mg) capsule 1 cap PO DAILY aspirin [Karie Chewable Aspirin] 81 mg tablet,chewable 81 mg PO DAILY gbbvzpi-zlzgrsadl-lawa 333-133-5 mg tablet PO potassium gluconate 600 mg (99 mg) tablet 600 mg PO DAILY atorvastatin [Lipitor] 80 mg tablet 80 mg PO DAILY Qty: 90 4RF lisinopril 10 mg tablet 10 mg PO DAILY Qty: 90 3RF metformin 1,000 mg tablet 1,000 mg PO BID Qty: 180 3RF ascorbic acid (vitamin C) 1,000 mg tablet 1 gm PO DAILY (DME) lancets [FreeStyle Lancets] 28 gauge misc 1 ea Miscellaneous DAILY Qty: 100 3RF Rx Instructions: E11.9 test 2 x daily for diabetes (DME) FreeStyle Lite Strips Strip 1 ea Miscellaneous DAILY Qty: 100 3RF Rx Instructions: 2 x daily (DME) blood-glucose meter [FreeStyle Lite Meter] Kit See Rx Instructions .ROUTE .MEDSUPPLY Qty: 1 0RF Rx Instructions: 2 x daily glipizide 10 mg tablet extended release 24hr 10 mg PO DAILY Qty: 90 4RF Discharge Instructions Instructions: Flank Pain (ED) Additional Instructions: Please take the oxycodone with food 1 tablet every 4-6 hours as needed for moderate to severe pain. We will place you on a care management list for urology follow-up within a week. Or you may call the urology clinic to make an appointment also. Follow up with primary care provider in 3-5 days if needed Return to ED sooner if any worsening or concerns. Increase oral fluids. At this time there is no evidence of kidney stone. There is no bowel obstruction. Rest ice alternate ice and heat. Referrals: Rubén Mcleod MD [ [facility] STAFF PHYSICIAN] - Return if symptoms worsen Luh Lange DNP [NURSE PRACTITIONER] - 1 week Rhonda Mesa STRAIGHTENING ROLL OPERATOR [Primary Care Provider] - Discharge Data Discharge Date/Time-TO BE ENTERED AT DEPARTURE: 11/19/21 13:47 Medical Decision Making Patient denies any problems urinating. Denies any fever or chills. Reports that his pain is worse. He was unable to get into urology he was told that maybe the ER could get into urology. Will place patient on care management list for urology follow-up within a week if possible. 1204: CT abdomen pelvis renal colic without contrast ordered due to patient's past medical history, ordered Percocet and Zofran. 1304:Spoke with Dr. Cooney radiologist regarding CT. No kidney stones appreciated. Please see report. Discussed CT results with patient and family they verbalized understanding. Patient discharged with instructions to follow-up with PCP this text was generated using [employer] system, please disregard any oddities of phrase or misspellings. Imaging Data Radiologic Study: Imaging: X-Ray Radiologist's impression: IMPRESSION: 1. No evidence of urinary tract calculi nor hydronephrosis. No hydroureter. No radiopaque calculi seen in the urinary bladder. 2. Prior cholecystectomy. Biliary tree is not dilated 3. There is also evidence of surgical clips in the left para-aortic region. There is no obvious para-aortic adenopathy although there are multiple small mesenteric lymph nodes incidentally noted. 4. There is an anterior abdominal wall midline umbilical-infraumbilical hernia which contains some streaky fat but no bowel loops. There is no bowel obstruction. 5. There is also fat containing left inguinal hernia. Sigmoid diverticuli but no evidence of acute diverticulitis. HPI General Mode of arrival: ambulatory . Date/Time Provider Initiated Documentation: 11/19/21 11:14 . Limitations to Documentation: no limitations . Information obtained by: patient, RN notes reviewed and old records reviewed . HPI Narrative: 70-year-old male presents to the ER with right flank pain he was seen at [facility] yesterday and had an ultrasound today. This found a small nonobstructing kidney stone. He is complaining of some pinpoint right lower back/flank pain. He is here for some pain control. He did have a urine dip yesterday which showed no leukocytosis or signs of infection. He does have a past medical history tubular adenoma, diverticulosis, type 2 diabetes, hyperlipidemia, hypertension, high triglycerides. He does take aspirin daily, glipizide, lisinopril, metformin Related Data Home Medications Medication Instructions Recorded Confirmed multivitamin 1 tab PO DAILY 09/05/19 11/19/21 vitamin B complex (B 1 tab PO DAILY 09/05/19 11/18/21 Complex-Vitamin B12 tablet) ascorbic acid (vitamin C) 1,000 mg 1 gm PO DAILY 12/13/19 11/18/21 tablet omega 6-pah-wvd-fish oil 1,000 mg 1 cap PO DAILY 01/25/20 11/19/21 (120 mg-180 mg) capsule (Fish Oil) aspirin 81 mg chewable tablet 81 mg PO DAILY 04/03/21 11/19/21 (Karie Chewable Low Dose Aspirin) atorvastatin 80 mg tablet (Lipitor) 80 mg PO DAILY #90 tab-caps 04/03/21 11/19/21 pzrzxgh-qjdaodqnw-cfuz 333 mg-133 tab PO 04/03/21 11/18/21 mg-5 mg tablet lisinopril 10 mg tablet 10 mg PO DAILY #90 tab-caps 04/03/21 11/19/21 metformin 1,000 mg tablet 1,000 mg PO BID #180 tab-caps 04/03/21 11/19/21 potassium gluconate 600 mg (99 mg) 600 mg PO DAILY 04/03/21 11/18/21 tablet lancets 28 gauge (FreeStyle #100 ea 04/10/21 11/18/21 Lancets) blood sugar diagnostic (FreeStyle #100 strips 06/25/21 11/18/21 Lite Strips) blood-glucose meter (FreeStyle #1 ea 06/25/21 11/18/21 Lite Meter kit) glipizide 10 mg tablet, extended 10 mg PO DAILY #90 tabs 07/22/21 11/19/21 release 24 hr Previous Rx's Medication Instructions Recorded atorvastatin 80 mg tablet (Lipitor) 80 mg PO DAILY #90 tab-caps 04/03/21 lisinopril 10 mg tablet 10 mg PO DAILY #90 tab-caps 04/03/21 metformin 1,000 mg tablet 1,000 mg PO BID #180 tab-caps 04/03/21 lancets 28 gauge (FreeStyle #100 ea 04/10/21 Lancets) blood sugar diagnostic (FreeStyle #100 strips 06/25/21 Lite Strips) blood-glucose meter (FreeStyle #1 ea 06/25/21 Lite Meter kit) glipizide 10 mg tablet, extended 10 mg PO DAILY #90 tabs 07/22/21 release 24 hr Allergies Allergy/AdvReac Type Severity Reaction Status Date / Time No Known Allergies Allergy Verified 11/19/21 11:09 General Stated Complaint: FlankPain KATHLEEN: 3 Review of Systems Constitutional Constitutional: Denies fever(s) Cardiovascular Cardiovascular: Denies chest pain and Denies dyspnea Respiratory Respiratory: Denies cough, Denies dyspnea and Denies wheezing Gastrointestinal Gastrointestinal: Reports as per HPI, Denies abdominal pain, Denies diarrhea, Denies nausea and Denies vomiting Genitourinary Genitourinary: Reports as per HPI and Reports flank pain Psychiatric Psychiatric: Reports anxiety Allergic/Immunologic Allergic/Immunologic: Denies wheezing PFSH All Active Problems (Updated 11/19/21 @ 13:28 by Dimple Lezama) Right flank pain (Acute) Right-sided back pain (Acute) Medial epicondylitis of left elbow (Acute) Tubular adenoma (Acute ~07/2020) Diverticula of colon (Acute) Type II diabetes mellitus with complication, uncontrolled (Acute) Other and unspecified angina pectoris (Acute 05/19/02) stent placement Obstructive sleep apnea syndrome (Acute 12/06/12) Hyperlipidemia (Acute 05/19/91) type IV lipids Essential hypertension (Acute 06/05/13) Elev transaminase/LDH (Acute) Hypertriglyceridemia (Acute) Obesity (Chronic) Incomplete bladder emptying (Acute) Tinnitus (Acute) Sensorineural hearing loss of both ears (Acute) Medical History (Updated 11/19/21 @ 13:28 by Dimple Lezama) 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 states he has no issues Family History Mother , age 82 Diabetes Heart disease Hyperlipidemia Father , age 82 Heart disease Hyperlipidemia Stroke Sister Hyperlipidemia Brother Diabetes Essential hypertension Heart disease Alcohol abuse Substance abuse Maternal Grandfather , age 80 Diabetes Heart disease Hyperlipidemia Paternal Grandfather , age 82 Essential hypertension Heart disease Hyperlipidemia Diabetes Maternal Grandmother , age 70 Diabetes Paternal Grandmother , age 40 No problems noted. Sister Depression Sister , age 40 Alcohol abuse Brother Diabetes Heart disease Substance abuse Brother Heart disease Daughter No problems noted. Daughter No problems noted. Daughter No problems noted. Social History (Updated 12/19/20 @ 14:30 by Afia Berry) Smoking/Tobacco Use Status: Former Tobacco Use tobacco type: cigarettes Quit Date: 06/20/69 Tobacco: How many years used: 6 Second Hand Exposure: Yes Smoking risk assessment performed?: Yes Alcohol Intake: current Alcohol Intake frequency: a few times a week Alcohol type: hard liquor Drug use: Daily Substance use type: marijuana Caregiver/Support person: Yes Household members: significant other Housing: house Communication Needs: Hard of Hearing Do you need help understanding health information?: Rarely Pets and animals: Yes Pets and animals: dog(s) Sexually active: Yes Do you think of yourself as: straight/heterosexual Current gender identity: male What is your relationship status?: How often do you talk on the phone with friends or family?: three or more times per week How often do you get together with friends or relatives?: three or more times per week How often do you attend evangelical or gnosticist services?: 1-3 times per year Do you belong to any clubs or organized social groups?: no Panel score (0-1 are the most socially isolated patients): 2 What type of physical activity do you participate 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 Appears stated age. Normal body habitus. Head: Normocephalic, no trauma. Eyes: Pupils PERRL, Red reflex noted, EOM's intact. Eyelids symmetrical without lesions, discharge, or swelling. Chest: RRR, Normal S1, S2, distal pulses intact. Resp: Lungs clear to auscultation bilaterally, no wheezes, rales, or rhonchi. Abdomen: Soft, non-distended, pinpoint right flank pain, no rash noted. Musculoskeletal: Normal gait, 5/5 strength to all four extremities. Skin: No suspicious rashes or lesions. Capillary refill less than 2 sec. Neurologic: Cranial nerves II-XII intact. Alert and oriented x 3. Motor: No deficits noted. Course Vital Signs Vital signs: Vital Signs Temperature 36.9 C 11/19/21 11:06 Pulse 66 11/19/21 11:06 Respiratory Rate 16 11/19/21 11:06 Pulse Oximetry 96 11/19/21 11:06 Temperature 36.9 C 11/19/21 11:06 Pulse 66 11/19/21 11:06 Respiratory Rate 16 11/19/21 11:06 Respiratory Effort 11/19/21 11:10 Pulse Oximetry 96 11/19/21 11:06 Pain Level 6 11/19/21 11:10
--- NOTE | 2021-11-19 12:05 | NUR.NOTE ---
Nursing Note: PT INFO FAXED TO [facility] TO BE SEEN IN A WEEK FOR A KIDNEY STONE. DIANN, ED
[2021-11-19] MEDS: Ondansetron O.D.T. 4 MG TABEF PO (12:13)
[2021-11-19] MEDS: oxyCODONE 5 mg/Acetaminophen 325 mg TAB 1 TAB PO (12:14)
--- NOTE | 2021-11-19 13:30 | DI.CT_ITS ---
Exam(s) CT RENAL COLIC WO EXAM: CT RENAL COLIC WO CLINICAL HISTORY: Flank Pain, R/O Kidney stone. TECHNIQUE: Imaging Protocol: Axial computed tomography images with coronal and sagittal reformatted images were created and reviewed CONTRAST MATERIAL: Intravenous: none Oral: None COMPARISON: No exams were available for comparison FINDINGS: VISUALIZED LUNG BASES: There is atelectasis in both lung bases. No pleural effusions.. ABDOMEN: There is no ascites. LIVER: There are no obvious focal hepatic lesions evident of this noninfused study. GALLBLADDER/BILIARY: Gallbladder surgically absent. CBD is not dilated. PANCREAS: No evidence of pancreatic mass nor dilatation of the pancreatic duct. SPLEEN: Spleen is not enlarged. No obvious intrasplenic lesions. ADRENALS: There are no significant adrenal masses. KIDNEYS:No cysts evident. No solid renal masses. No calculi nor hydronephrosis. . ABDOMINAL AORTA: Abdominal aorta is not enlarged. LYMPH NODES: There are multiple small mesenteric lymph nodes. No abnormal mesenteric masses evident. There is no para-aortic adenopathy. There is surgical clips to the left of the aorta. There is de nsity in this region but appears to be unopacified bowel loops (as opposed to adenopathy). ABDOMINAL WALL: There is midline anterior abdominal wall umbilical and infraumbilical hernia which co ntains fat which exhibits some streaking. No bowel loops therein. No bowel obstruction. No free ai r. No abscess There is also a fat containing left inguinal hernia. No bowel loops within the inguinal canal. PELVIS: LYMPH NODES: There is no intrapelvic nor inguinal adenopathy. GI: Appendix appears to be surgically absent. No evidence of appendicitis. There are sigmoid divert iculi but no evidence of acute diverticulitis. URINARY BLADDER: No calculi nor obvious masses evident REPRODUCTIVE: Prostate gland size is upper normal. Seminal vesicles unremarkable. OSSEOUS: No significant osseous lesions. Multilevel chronic degenerative disc disease and facet arthropathy. IMPRESSION: 1. No evidence of urinary tract calculi nor hydronephrosis. No hydroureter. No radiopaque calculi s een in the urinary bladder. 2. Prior cholecystectomy. Biliary tree is not dilated 3. There is also evidence of surgical clips in the left para-aortic region. There is no obvious para -aortic adenopathy although there are multiple small mesenteric lymph nodes incidentally noted. 4. There is an anterior abdominal wall midline umbilical-infraumbilical hernia which contains some s treaky fat but no bowel loops. There is no bowel obstruction. 5. There is also fat containing left inguinal hernia. Sigmoid diverticuli but no evidence of acute diverticulitis. Report called by myself to ER provider. RADIATION DOSE DELIVERED: 996.66mGy.cm Total DLP DATA REPOSITORY: All CT scans at this facility are submitted to the National Radiology Data Registry (NRDR) Dose Index Registry (DIR) with the [employer] (ACR). RADIATION OPTIMIZATION: All CT scans at this facility use at least one of these dose optimization te chniques: automated exposure control; mA and/or kV adjustment per patient size (includes targeted exa ms where dose is matched to clinical indication); or iterative reconstruction.
[2021-11-19 13:45] VITALS: BP 136/64; PULSE 72; RESP 16; O2SAT 97
== END 2021-11-19 13:47 | disposition home or self-care (01) ==
PROVIDERS: Emergency Provider Registered Nurse Emergency; PCP Nurse Practitioner
DX: R10.9 Unspecified abdominal pain (principal); M54.50 Low back pain, unspecified
CPT/HCPCS: 99284; 74176; 99283

== ENCOUNTER 2021-11-21 11:08 | Inpatient (IN) | payer MEDICARE, OTHER, SELFPAY ==
[2021-11-21 11:15] VITALS: BP 151/54; PULSE 71; RESP 18; TEMP 36.6; O2SAT 95
--- NOTE | 2021-11-21 11:20 | W.ED.GENAD ---
Discharge Plan Disposition Patient Disposition: [facility] INPATIENT Condition: Stable Discharge Details Clinical Impression: Pancreatitis, Abdominal pain, Mesenteric panniculitis Admit Date/Time: 11/21/21 15:24 Admit Provider: Shiv Adams Attending Provider: Shiv Adams Primary Care Provider: Rhonda Mesa ED Provider: Martha White Discharge Data Discharge Date/Time-TO BE ENTERED AT DEPARTURE: 11/21/21 16:48 Medical Decision Making 1125 -- 71-year-old male with a history of obesity, hypertension, hyperlipidemia, diabetes, cholecystectomy, hernia repair, orchiectomy, polypectomy presents with 1 week of right-sided flank pain with a nonobstructing left renal calculus on outpatient ultrasound on 11/18/[address] renal colic without contrast on 11/19/21 presents with persistent right-sided flank and abdominal pain for 10 days. Vitals within normal limits. Patient appears comfortable and nontoxic. He has tenderness overlying his right lateral inferior ribs and right lateral abdomen. There is an area of mild to moderate swelling noted to the right lateral abdomen. There is no surrounding cellulitis, trauma or rash. No CVA tenderness. Normal exam. Differential diagnosis includes muscle strain, appendicitis, bowel obstruction, pneumonia. This patient was evaluated during a time of global shortage of iodinated contrast media. Based on guidance from the [employer], best practices, and local institutional approaches, an alternative path for evaluating and managing the patient may have been employed in order to provide optimal care during this shortage. The current situation has been discussed with the patient. We will place an IV, bolus IV fluids, screening labs, urinalysis, CT chest abdomen and pelvis with oral contrast and give a dose of Toradol and reassess. 1300 -- Labs reviewed. Lipase 1618. Normal WBC. Normal electrolytes. Urinalysis negative. Patient reassessed and his pain is improved. Awaiting to go to CT. 1445 -- CT chest negative. CT abdomen and pelvis notes IMPRESSION: 1. Midline supraumbilical abdominal wall hernia containing portion of small bowel wall without signs of obstruction or strangulation. Fat containing umbilical hernia with mild stranding of herniated fat, which may indicate edema. Please correlate for tenderness. 2. Mesenteric panniculitis, a nonspecific inflammatory process. This is often incidental and asymptomatic however can be cause of acute abdominal pain and may be associated with prior surgery, trauma, infection, autoimmune diseases, and malignancies. Consider follow-up CT in 3-6 months or appropriate clinical interval. 3. Nonspecific perinephric fat stranding. This may indicate concurrent urinary tract pathology or represent sequela of prior inflammation or infection.? If warranted, correlate with urinalysis. Case discussed with general surgery warehouse operations manager Dr. Jackson --recommends admission for the elevated lipase for trending lipase, n.p.o. and IV fluid hydration with pain control. States the panniculitis could be reactive in the setting of pancreatitis. Diagnosis of pancreatitis can be limited with a CT scan without IV contrast. Patient states his pain is improved but still present at 4/10. He appears nontoxic. Case discussed with hospitalist who accepts patient for admission. History and presentation does not appear consistent with mesenteric ischemia at this time and a lactate level obtained was within normal limits. There may be a low threshold to obtain additional CT imaging with IV contrast for further assessment. Medical Records Medical records reviewed: Yes I reviewed the patient's medical records. Medical records narrative: 11/19/21 CT RENAL COLIC WO IMPRESSION: 1. No evidence of urinary tract calculi nor hydronephrosis.? No hydroureter.? No radiopaque calculi seen in the urinary bladder. 2. Prior cholecystectomy.? Biliary tree is not dilated 3. There is also evidence of surgical clips in the left para-aortic region.? There is no obvious para-aortic adenopathy although there are multiple small mesenteric lymph nodes incidentally noted. 4.? There is an anterior abdominal wall midline umbilical-infraumbilical hernia which contains some streaky fat but no bowel loops.? There is no bowel obstruction. 5.? There is also fat containing left inguinal hernia. Sigmoid diverticuli but no evidence of acute diverticulitis. 11/18/21 US RENAL IMPRESSION: There is an apparent small nonobstructing left renal calculus.? No other significant findings. Imaging Data Radiologic Study: Radiologist's impression: CT Chest Without Contrast; Diagnostic Exam date and time: 11/21/2021 1:44 PM Age: 71 years old Clinical indication: Bloating; Abdominal pain; Other: Generalized RT sided pain TECHNIQUE: Imaging protocol: Diagnostic computed tomography of the chest without contrast. Radiation optimization: All CT scans at this facility use at least one of these dose optimization techniques: automated exposure control; mA and/or kV adjustment per patient size (includes targeted exams where dose is matched to clinical indication); or iterative reconstruction. Other contrast: Oral, Gadolinium, 25 mL in x 2 bottles of Breeza; COMPARISON: CT RENAL COLIC WO 11/19/2021 12:23 PM FINDINGS: Lungs: Mild bibasilar hypoventilatory change and scarring. Pleural spaces: Unremarkable. No pneumothorax. No pleural effusion. Heart: Coronary artery calcification. Lymph nodes: Unremarkable. No enlarged lymph nodes. Vasculature: Normal caliber thoracic aorta with calcified atherosclerosis. Bones/joints: Unremarkable. No acute fracture. Soft tissues: Mild bilateral gynecomastia. IMPRESSION: No acute process. CT Abdomen And Pelvis Without Contrast Exam date and time: 11/21/2021 1:44 PM Age: 71 years old Clinical indication: Bloating; Abdominal pain; Other: Generalized RT sided pain TECHNIQUE: Imaging protocol: Computed tomography of the abdomen and pelvis without contrast. Radiation optimization: All CT scans at this facility use at least one of these dose optimization techniques: automated exposure control; mA and/or kV adjustment per patient size (includes targeted exams where dose is matched to clinical indication); or iterative reconstruction. Other contrast: Oral, Gadolinium, 25 mL in x 2 bottles of Breeza; COMPARISON: CT RENAL COLIC WO 11/19/2021 12:23 PM FINDINGS: Lungs: No concerning finding. Liver: Normal. No mass. Gallbladder and bile ducts: Post cholecystectomy. No abnormal biliary ductal dilation. Pancreas: Normal. No ductal dilation. Spleen: Normal. No splenomegaly. Adrenal glands: The adrenal glands are unremarkable. Kidneys and ureters: No hydronephrosis or nephrolithiasis. Nonspecific perinephric fat stranding. Stomach and bowel: Diverticulosis without diverticulitis. Appendix: Post appendectomy. Intraperitoneal space: Unremarkable. No free air. No significant fluid collection. Retroperitoneal space: Retroperitoneal surgical clips Vasculature: Normal caliber abdominal aorta and proximal common iliac arteries with calcified atherosclerosis. Lymph nodes: Increased attenuation of mesentery with fat stranding, surrounding pseudocapsule, clustered prominent mesenteric lymph nodes, 3-724, and halo of spared fat surrounding nodes and vessels. Urinary bladder: No focal wall thickening of the urinary bladder. Reproductive: Top-normal sized prostate Bones/joints: Degenerative change of the spine. Soft tissues: Fat containing umbilical hernia with mild stranding of herniated fat, 3-918. A midline small abdominal wall defect just superior to the umbilicus with new focal herniation of a portion of the small bowel wall, 3-882, and without signs of obstruction or strangulation. There is a fat containing right inguinal hernia. IMPRESSION: 1. Midline supraumbilical abdominal wall hernia containing portion of small bowel wall without signs of obstruction or strangulation. Fat containing umbilical hernia with mild stranding of herniated fat, which may indicate edema. Please correlate for tenderness. 2. Mesenteric panniculitis, a nonspecific inflammatory process. This is often incidental and asymptomatic however can be cause of acute abdominal pain and may be associated with prior surgery, trauma, infection, autoimmune diseases, and malignancies. Consider follow-up CT in 3-6 months or appropriate clinical interval. 3. Nonspecific perinephric fat stranding. This may indicate concurrent urinary tract pathology or represent sequela of prior inflammation or infection.? If warranted, correlate with urinalysis. Lab Data Lab results reviewed: Yes I reviewed the patient's lab results. Labs: Laboratory Tests Range/Units 11/21/21 11/21/21 11/21/21 11:48 11:48 11:48 WBC (4.4-10.8) 10^3/uL 7.94 RBC (4.36-5.78) 10^6/uL 4.65 Hgb (13.5-17.5) g/dL 14.1 Hct (40.0-50.0) % 42.5 MCV (80-95) fL 91 MCH (27.0-33.0) pg 30.3 MCHC (32.0-36.0) % 33.2 RDW (11.8-14.1) % 13.8 Plt Count (130-400) 10^3/uL 194 MPV (8.0-11.0) fL 9.1 Immature Gran % 0.4 Neutrophils % 62.4 Lymphocytes % 26.6 Monocytes % 7.6 Eosinophils % 2.4 Basophils % 0.6 Nucleated RBC % (0.0-0.3) % 0.0 Absolute Neutrophils (1.2-6.7) 10^3/uL 4.96 Absolute Lymphocytes (1.2-3.4) 10^3/uL 2.11 Absolute Monocytes (0.1-0.8) 10^3/uL 0.60 Absolute Eosinophils (0.0-0.7) 10^3/uL 0.19 Absolute Basophils (0.0-0.2) 10^3/uL 0.05 Sodium (136-145) mmol/L 136 Potassium (3.5-5.1) mmol/L 4.4 Chloride (98-107) mmol/L 102 Carbon Dioxide (21.0-32.0) mmol/L 27.4 Anion Gap (3-11) mmol/L 6.6 BUN (7-18) mg/dL 23 H Creatinine (0.70-1.30) mg/dL 1.0 Estimated GFR/1.73 m2 (mL/min/1.73m2) >= 60.00 Glucose (74-106) mg/dL 102 Calcium (8.5-10.1) mg/dL 9.0 Total Bilirubin (0.2-1.0) mg/dL 0.7 AST (15-37) U/L 12 L ALT (16-63) U/L 29 Alkaline Phosphatase (46-116) U/L 67 Total Protein (6.4-8.2) g/dL 7.4 Albumin (3.4-5.0) g/dL 4.0 Lipase (73-393) U/L 1618 H Urine Color (Yellow) Yellow Urine Clarity (Clear) Clear Urine pH (5-8) 5.5 Ur Specific [place] (1.005-1.025) 1.015 Urine Protein (Negative) mg/dL Negative Urine Ketones (Negative) mg/dL Negative Urine Blood (Negative) Negative Urine Nitrite (Negative) Negative Urine Bilirubin (Negative) Negative Urine Urobilinogen (Up TO 0.2) EU/dL 0.2 Ur Leukocyte Esterase (Negative) Negative Urine Glucose (Negative) mg/dL Negative HPI General Mode of arrival: ambulatory. Date/Time Provider Initiated Documentation: 11/21/21 11:17. Limitations to Documentation: no limitations. Information obtained by: patient. HPI Narrative: Patient is a 71-year-old male with a history of obesity, diabetes, hypertension, hyperlipidemia who presents with 1 week of intermittent right-sided flank and abdominal pain. Patient was seen at the clinic office on 11/18 and was given Toradol IM and referred for outpatient ultrasound which noted a small nonobstructing left renal calculus. He presented to the ED 2 days ago for persistent left flank pain and had unremarkable renal CT. Patient followed up at the clinic again yesterday for persistent pain and was given oxycodone. He states he last took oxycodone 1 hour ago prior to arrival with some relief. He states the pain is 9/10 at its worst and is currently 5/10. He describes the pain aching and sharp that is worse when laying on his right side or with reaching up with his right arm. He occasionally has worsening pain with walking and movement. He denies any known injury. He has not taken Tylenol or ibuprofen today for pain. He states he has been eating normally but does admit to occasional nausea but denies any vomiting. He last had a normal bowel movement today. He denies any fever, cough, shortness of breath, diarrhea or urinary symptoms. Related Data Home Medications Medication Instructions Recorded Confirmed multivitamin 1 tab PO DAILY 09/05/19 11/21/21 vitamin B complex (B 1 tab PO DAILY 09/05/19 11/21/21 Complex-Vitamin B12 tablet) ascorbic acid (vitamin C) 1,000 mg 1 gm PO DAILY 12/13/19 11/21/21 tablet omega [id number] oil 1,000 mg 1 cap PO DAILY 01/25/20 11/21/21 (120 mg-180 mg) capsule (Fish Oil) aspirin 81 mg chewable tablet 81 mg PO DAILY 04/03/21 11/21/21 (Karie Chewable Low Dose Aspirin) atorvastatin 80 mg tablet (Lipitor) 80 mg PO DAILY #90 tab-caps 04/03/21 11/21/21 [id number] 333 mg-133 tab PO 04/03/21 11/20/21 mg-5 mg tablet lisinopril 10 mg tablet 10 mg PO DAILY #90 tab-caps 04/03/21 11/21/21 metformin 1,000 mg tablet 1,000 mg PO BID #180 tab-caps 04/03/21 11/21/21 potassium gluconate 600 mg (99 mg) 600 mg PO DAILY 04/03/21 11/21/21 tablet lancets 28 gauge (FreeStyle #100 ea 04/10/21 11/21/21 Lancets) blood sugar diagnostic (FreeStyle #100 strips 06/25/21 11/21/21 Lite Strips) blood-glucose meter (FreeStyle #1 ea 06/25/21 11/21/21 Lite Meter kit) glipizide 10 mg tablet, extended 10 mg PO DAILY #90 tabs 07/22/21 11/21/21 release 24 hr oxycodone 5 mg tablet 5 mg PO BID PRN pain #6 tabs 11/20/21 11/21/21 Previous Rx's Medication Instructions Recorded atorvastatin 80 mg tablet (Lipitor) 80 mg PO DAILY #90 tab-caps 04/03/21 lisinopril 10 mg tablet 10 mg PO DAILY #90 tab-caps 04/03/21 metformin 1,000 mg tablet 1,000 mg PO BID #180 tab-caps 04/03/21 lancets 28 gauge (FreeStyle #100 ea 04/10/21 Lancets) blood sugar diagnostic (FreeStyle #100 strips 06/25/21 Lite Strips) blood-glucose meter (FreeStyle #1 ea 06/25/21 Lite Meter kit) glipizide 10 mg tablet, extended 10 mg PO DAILY #90 tabs 07/22/21 release 24 hr oxycodone 5 mg tablet 5 mg PO BID PRN pain #6 tabs 11/20/21 Allergies Allergy/AdvReac Type Severity Reaction Status Date / Time No Known Allergies Allergy Verified 11/21/21 11:19 General Stated Complaint: Abd Prob KATHLEEN: 3 Review of Systems All systems reviewed & are unremarkable except as noted in HPI and below Constitutional Constitutional: Denies chills, Denies excessive sweating, Denies fatigue, Denies fever(s), Denies weakness and Denies weight loss Eyes Eyes: Reports system reviewed and no additional complaints, except as documented and Denies blurry vision ENT Ears, Nose, Mouth, and Throat: Denies vertigo, Denies dizziness, Denies otalgia, Denies nasal congestion, Denies sore throat and Denies throat swelling Cardiovascular Cardiovascular: Denies chest pain, Denies syncope, Denies rapid heart rate and Denies dyspnea Respiratory Respiratory: Denies chest congestion, Denies cough, Denies pain on inspiration and Denies dyspnea Gastrointestinal Gastrointestinal: Reports abdominal pain, Denies diarrhea and Denies vomiting Genitourinary Genitourinary: Denies hematuria, Denies dysuria and Reports flank pain Musculoskeletal Musculoskeletal: Reports back pain and Denies joint swelling Integumentary/Breasts Skin/Breast: Denies lesions and Denies rash Neurologic Neurologic: Denies behavioral changes, Denies confusion, Denies vertigo, Denies dizziness, Denies syncope, Denies localized weakness and Denies weakness Psychiatric Psychiatric: Denies behavioral changes, Denies confusion and Denies depression Endocrine Endocrine: Denies excessive sweating and Denies fatigue Hematologic/Lymphatic Hematologic/Lymphatic: Denies easy bruising and Denies lymphadenopathy Allergic/Immunologic Allergic/Immunologic: Denies throat swelling PFSH All Active Problems (Updated 11/21/21 @ 21:51 by Preston Jackson MD) Acute herpes zoster neuropathy (Acute) Discharge planning issues (Acute) DVT prophylaxis (Acute) Pancreatitis (Chronic) Right flank pain (Acute) Right-sided back pain (Acute) Medial epicondylitis of left elbow (Acute) Tubular adenoma (Acute ~07/2020) Diverticula of colon (Acute) Type II diabetes mellitus with complication, uncontrolled (Acute) Other and unspecified angina pectoris (Acute 05/19/02) stent placement Obstructive sleep apnea syndrome (Acute 12/06/12) Hyperlipidemia (Acute 05/19/91) type IV lipids Essential hypertension (Acute 06/05/13) Elev transaminase/LDH (Acute) Hypertriglyceridemia (Acute) Obesity (Chronic) Incomplete bladder emptying (Acute) Tinnitus (Acute) Sensorineural hearing loss of both ears (Acute) Medical History (Updated 11/21/21 @ 21:51 by Preston Jackson MD) Colon polyp 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 states he has no issues Family History Mother , age 82 Diabetes Heart disease Hyperlipidemia Father , age 82 Heart disease Hyperlipidemia Stroke Sister Hyperlipidemia Brother Diabetes Essential hypertension Heart disease Alcohol abuse Substance abuse Maternal Grandfather , age 80 Diabetes Heart disease Hyperlipidemia Paternal Grandfather , age 82 Essential hypertension Heart disease Hyperlipidemia Diabetes Maternal Grandmother , age 70 Diabetes Paternal Grandmother , age 40 No problems noted. Sister Depression Sister , age 40 Alcohol abuse Brother Diabetes Heart disease Substance abuse Brother Heart disease Daughter No problems noted. Daughter No problems noted. Daughter No problems noted. Social History (Updated 12/19/20 @ 14:30 by Afia Berry) Smoking/Tobacco Use Status: Former Tobacco Use tobacco type: cigarettes Quit Date: 06/20/69 Tobacco: How many years used: 6 Second Hand Exposure: Yes Smoking risk assessment performed?: Yes Alcohol Intake: current Alcohol Intake frequency: a few times a week Alcohol type: hard liquor Drug use: Daily Substance use type: marijuana Caregiver/Support person: Yes Household members: significant other Housing: house Communication Needs: Hard of Hearing Do you need help understanding health information?: Rarely Pets and animals: Yes Pets and animals: dog(s) Sexually active: Yes Do you think of yourself as: straight/heterosexual Current gender identity: male What is your relationship status?: How often do you talk on the phone with friends or family?: three or more times per week How often do you get together with friends or relatives?: three or more times per week How often do you attend roman catholic or gnosticist services?: 1-3 times per year Do you belong to any clubs or organized social groups?: no Panel score (0-1 are the most socially isolated patients): 2 What type of physical activity do you participate in: bicycling, 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 and 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: skiing Duration: 15-30 minutes/day Frequency: 3-4 times per week Sharonda/Hindu: Mormonism Special sharonda needs: No Seatbelt use: always Helmet use: Yes Helmet use: always Drive intox or ride w/intox mobile lounge driver: No Do you feel safe at home: Yes Do you feel safe in your relationship?: Yes Exam Const General: cooperative Nutritional Appearance: obese morbidly obese Orientation: alert, awake and oriented x3 HENMT Head: normal to inspection Ears: hearing grossly normal bilaterally, external ears normal and TM's normal bilaterally General nose exam: external nose normal Face and sinus: normal facial exam Mouth: oral mucosae normal Teeth and gingiva: dentition normal Throat: posterior oropharynx normal Eyes General: appearance normal, both eyes and all related structures Eyelids: eyelids normal Pupils: PERRL EOM: EOM intact bilaterally Neck Neck: normal visual inspection Lymphatic: no lymphadenopathy noted Chest Chest: normal inspection of the chest Resp Effort & Inspection: normal respiratory effort and able to speak in complete sentences Auscultation: clear to auscultation bilaterally Cardio Rate: regular rate Rhythm: regular rhythm GI Inspection: normal to inspection Palpation: soft, not firm, no guarding, no hepatosplenomegaly, no masses and nontender Auscultation: hypoactive bowel sounds Abdomen image: 1. Tenderness to palpation to right mid lateral abdomen and overlying R lateral inferior ribs. There is an area of mild to moderate edema noted to the right lateral abdomen. There is no surrounding erythema, with, crepitus or rash. Male General Exam: Yes normal external exam Back/Spine/Pelvis Back: no CVA tenderness Skin General skin exam: no rashes or lesions noted Neuro General: patient alert and patient awake Cognition: normal cognition Speech: speech normal Gait: normal gait Motor: muscle tone normal throughout Sensory Exam: no sensory deficits noted Extrem General: normal to inspection, full ROM and capillary refill normal Psych Appearance: grossly normal Mental Status: mental status grossly normal Speech and Movement: speech and movement normal Affect: normal affect Thought Process: normal Course Vital Signs Vital signs: Vital Signs Temperature 97.9 F 11/21/21 11:15 Pulse 71 11/21/21 11:15 Respiratory Rate 18 11/21/21 11:15 Blood Pressure 151/54 H 11/21/21 11:15 Pulse Oximetry 95 11/21/21 11:15 Temperature 97.9 F 11/21/21 11:15 Temperature Source Temporal Artery Scan 11/21/21 11:15 Pulse 71 11/21/21 11:15 Respiratory Rate 18 11/21/21 11:15 Blood Pressure 151/54 H 11/21/21 11:15 Blood Pressure Position Sitting 11/21/21 11:15 Pulse Oximetry 95 11/21/21 11:15 Oxygen Delivery Method Room Air 11/21/21 11:15 Oxygen Flow Rate 0 11/21/21 11:15
[2021-11-21 12:00] LABS: Abs Immature Grans 0.03 10^3/uL (0.0-0.06); Absolute Basophil Count 0.05 10^3/uL (0.0-0.2); Absolute Eosinophil Count 0.19 10^3/uL (0.0-0.7); Absolute Lymphocyte Count 2.11 10^3/uL (1.2-3.4); Absolute Neutrophil Count 4.96 10^3/uL (1.2-6.7); Basophils % 0.6; Eosinophils % 2.4; HCT 42.5 % (40.0-50.0); HGB 14.1 g/dL (13.5-17.5); Immature Grans % 0.4; Lymphocytes % 26.6; MCH 30.3 pg (27.0-33.0); MCHC 33.2 % (32.0-36.0); MCV 91 fL (80-95); MPV 9.1 fL (8.0-11.0); Monocytes % 7.6; Neutrophils % 62.4; Platelet Count 194 10^3/uL (130-400); RBC 4.65 10^6/uL (4.36-5.78); RDW 13.8 % (11.8-14.1); RDW-SD 46.2 fL; WBC 7.94 10^3/uL (4.4-10.8)
--- NOTE | 2021-11-21 12:00 | DI.CT_ITS ---
Exam(s) CT CHEST/ABD/PEL WO EXAM: CT CHEST/ABD/PEL WO CLINICAL HISTORY: R sided abd pain/R side abd swelling. TECHNIQUE: Imaging Protocol: Axial computed tomography images with coronal and sagittal reformatted images were created and reviewed CONTRAST MATERIAL: Intravenous: none Oral: Yes. COMPARISON: CT CT RENAL COLIC WO from 11/19/2021 FINDINGS: CHEST: LUNGS: Atelectasis in both lung bases noted, similar to the uppermost images of the recent abdominal CT scan performed 2 days ago. No pleural effusions.. MEDIASTINUM: No obvious hilar nor mediastinal adenopathy. Visualized thyroid unremarkable. CARDIAC: Heart size is normal. There is no pericardial effusion.Caliber of the thoracic aorta is wit hin normal limits. OSSEOUS: No significant osseous lesions.No fractures.. ABDOMEN: There is no ascites. LIVER: There are no obvious focal hepatic lesions evident of this noninfused study. GALLBLADDER/BILIARY: The gallbladder is again noted be surgically absent. CBD is not dilated. PANCREAS: No evidence of obvious pancreatic mass nor dilatation of the pancreatic duct. Few small ly mph nodes are noted around the pancreas. SPLEEN: Also in the mesentery. These measure less than 1 cm. ADRENALS: There are no significant adrenal masses. KIDNEYS: Symmetrical mild perinephric streaking noted, unchanged.. No cysts evident. ABDOMINAL AORTA: Abdominal aorta is not enlarged. LYMPH NODES: Surgical clips are again noted around the abdominal aorta. However, there does not appe ar to be significant para-aortic adenopathy. There is also no adenopathy around the aortic bifurcati on nor along the iliac chains and there is no inguinal adenopathy. ABDOMINAL WALL/GI: Anterior abdominal wall fat only containing umbilical hernia again noted. No ha l loops therein. No bowel obstruction. No free air. No abscess . PELVIS: Fat containing left inguinal hernia again noted. No bowel loops therein. LYMPH NODES: There is no intrapelvic nor inguinal adenopathy. GI: No evidence of appendicitis.Sigmoid diverticulosis. No obvious acute diverticulitis. URINARY BLADDER: No calculi nor obvious masses evident REPRODUCTIVE: Prostate and seminal vesicles unremarkable. OSSEOUS: No significant osseous lesions. IMPRESSION: 1. Some atelectasis noted in both lung bases but no confluent infiltrates nor pleural effusions. No ominous pulmonary nodules. No intrathoracic adenopathy. 2. Gallbladder surgically absent. The biliary tree is not dilated. 3. A few small lymph nodes are noted in the mesentery. No gross adenopathy. No splenomegaly. Anterior abdominal wall and left inguinal fat containing hernias. No bowel loops therein. No bowel obstruction. RADIATION DOSE DELIVERED: 1,400.47mGy.cm Total DLP DATA REPOSITORY: All CT scans at this facility are submitted to the National Radiology Data Registry (NRDR) Dose Index Registry (DIR) with the [employer] (A[employer]). RADIATION OPTIMIZATION: All CT scans at this facility use at least one of these dose optimization te chniques: automated exposure control; mA and/or kV adjustment per patient size (includes targeted exa ms where dose is matched to clinical indication); or iterative reconstruction.
[2021-11-21 12:05] LABS: Bilirubin Negative (Negative); Blood Negative (Negative); Clarity Clear (Clear); Glucose Negative (Negative); Ketones Negative (Negative); Leukocyte Esterase Negative (Negative); Nitrite Negative (Negative); Specific Gravity 1.015 (1.005-1.025); Urobilinogen 0.2 EU/dL (Up TO 0.2); pH 5.5 (5-8)
[2021-11-21 12:14] LABS: ALT 29 U/L (16-63); AST 12 U/L (15-37); Alkaline Phosphatase 67 U/L (46-116); Anion Gap 6.6 mmol/L (3-11); BUN 23 mg/dL (7-18); Bilirubin, Total 0.7 mg/dL (0.2-1.0); CO2 27.4 mmol/L (21.0-32.0); Chloride 102 mmol/L (98-107); Glucose 102 mg/dL (74-106); Potassium 4.4 mmol/L (3.5-5.1); Sodium 136 mmol/L (136-145); Total Protein 7.4 g/dL (6.4-8.2)
[2021-11-21 12:15] LABS: Lipase 1618 U/L (73-393)
[2021-11-21] MEDS: Ketorolac 30 MG/ML VIAL IVP (12:23)
[2021-11-21] MEDS: Normal Saline 1,000 ML 1000 ML IV (12:24)
[2021-11-21] MEDS: Breeza Beverage 473 ML BTL PO ×2 (13:22→13:23)
[2021-11-21 14:48] VITALS: BP 132/84; PULSE 75; RESP 18; TEMP 37; O2SAT 99
--- NOTE | 2021-11-21 14:51 | DI.VRAD_ITS ---
PROCEDURE INFORMATION: Exam: CT Chest Without Contrast; Diagnostic Exam date and time: 11/21/2021 1:44 PM Age: 71 years old Clinical indication: Bloating; Abdominal pain; Other: Generalized RT sided pain TECHNIQUE: Imaging protocol: Diagnostic computed tomography of the chest without contrast. Radiation optimization: All CT scans at this facility use at least one of these dose optimization techniques: automated exposure control; mA and/or kV adjustment per patient size (includes targeted exams where dose is matched to clinical indication); or iterative reconstruction. Other contrast: Oral, Gadolinium, 25 mL in x 2 bottles of Breeza; COMPARISON: CT RENAL COLIC WO 11/19/2021 12:23 PM FINDINGS: Lungs: Mild bibasilar hypoventilatory change and scarring. Pleural spaces: Unremarkable. No pneumothorax. No pleural effusion. Heart: Coronary artery calcification. Lymph nodes: Unremarkable. No enlarged lymph nodes. Vasculature: Normal caliber thoracic aorta with calcified atherosclerosis. Bones/joints: Unremarkable. No acute fracture. Soft tissues: Mild bilateral gynecomastia. IMPRESSION: No acute process. PROCEDURE INFORMATION: Exam: CT Abdomen And Pelvis Without Contrast Exam date and time: 11/21/2021 1:44 PM Age: 71 years old Clinical indication: Bloating; Abdominal pain; Other: Generalized RT sided pain TECHNIQUE: Imaging protocol: Computed tomography of the abdomen and pelvis without contrast. Radiation optimization: All CT scans at this facility use at least one of these dose optimization techniques: automated exposure control; mA and/or kV adjustment per patient size (includes targeted exams where dose is matched to clinical indication); or iterative reconstruction. Other contrast: Oral, Gadolinium, 25 mL in x 2 bottles of Breeza; COMPARISON: CT RENAL COLIC WO 11/19/2021 12:23 PM FINDINGS: Lungs: No concerning finding. Liver: Normal. No mass. Gallbladder and bile ducts: Post cholecystectomy. No abnormal biliary ductal dilation. Pancreas: Normal. No ductal dilation. Spleen: Normal. No splenomegaly. Adrenal glands: The adrenal glands are unremarkable. Kidneys and ureters: No hydronephrosis or nephrolithiasis. Nonspecific perinephric fat stranding. Stomach and bowel: Diverticulosis without diverticulitis. Appendix: Post appendectomy. Intraperitoneal space: Unremarkable. No free air. No significant fluid collection. Retroperitoneal space: Retroperitoneal surgical clips Vasculature: Normal caliber abdominal aorta and proximal common iliac arteries with calcified atherosclerosis. Lymph nodes: Increased attenuation of mesentery with fat stranding, surrounding pseudocapsule, clustered prominent mesenteric lymph nodes, 3-724, and halo of spared fat surrounding nodes and vessels. Urinary bladder: No focal wall thickening of the urinary bladder. Reproductive: Top-normal sized prostate Bones/joints: Degenerative change of the spine. Soft tissues: Fat containing umbilical hernia with mild stranding of herniated fat, 3-918. A midline small abdominal wall defect just superior to the umbilicus with new focal herniation of a portion of the small bowel wall, 3-882, and without signs of obstruction or strangulation. There is a fat containing right inguinal hernia. IMPRESSION: 1. Midline supraumbilical abdominal wall hernia containing portion of small bowel wall without signs of obstruction or strangulation. Fat containing umbilical hernia with mild stranding of herniated fat, which may indicate edema. Please correlate for tenderness. 2. Mesenteric panniculitis, a nonspecific inflammatory process. This is often incidental and asymptomatic however can be cause of acute abdominal pain and may be associated with prior surgery, trauma, infection, autoimmune diseases, and malignancies. Consider follow-up CT in 3-6 months or appropriate clinical interval. 3. Nonspecific perinephric fat stranding. This may indicate concurrent urinary tract pathology or represent sequela of prior inflammation or infection. If warranted, correlate with urinalysis. Dictated and Authenticated by: Jacqueline Nooyla MD. Ordering:KIMMY Thomas MD
--- NOTE | 2021-11-21 15:32 | W.PM.HP.N ---
Date of service: 11/21/21 Time of Service: 14:33 Assessment and Plan Assessment and plan (1) Pancreatitis: Status: Chronic Assessment and plan: continue IV hydration, change to LR pain and symptom management will hold lisinopril for now (class III) also only list and on hold: metformin (class III) add lipid panel to check triglycerides surgery recommends trending lipase and NPO, will allow clears overnight, advance as appropriate will appreciate second evaluation and request formal surgical consult, pulmonary toileting lactate is normal, monitor clinical response closely low threshold for repeat CT with IV contrast if not responding as symptoms not consistent with pancreatitis, other possible differentials, ischemic bowel (less likely with normal lactate but was drawn after IV fluid bolus), renal infarct, abscess, other differential may include shingles but ? association with elevated lipase. (2) Type II diabetes mellitus with complication, uncontrolled: Status: Acute Assessment and plan: hold home oral diabetic agents. will check BS ac/hs sliding scale coverage as needed. (3) Obstructive sleep apnea syndrome: Status: Acute Assessment and plan: does not wear cpap, hasn't tolerated in the past (4) Essential hypertension: Status: Acute Assessment and plan: lisinopril on hold in setting of pancreatitis. monitor, consider other class if needed. (5) DVT prophylaxis: Status: Acute Assessment and plan: enoxaparin, teds (6) Discharge planning issues: Status: Acute Assessment and plan: anticipate discharge to home when medically stable. discussed with DR Adams History of Present Illness History of Present Illness Chief Complaint: right abdominal pain Narrative: This is a 71-year-old male with a history of obesity, diabetes, hypertension, hyperlipidemia who presents with 1 week of intermittent right-sided flank and abdominal pain.? Patient was seen at the clinic office on 11/18 and was given Toradol IM and referred for outpatient ultrasound which noted a small nonobstructing left renal calculus.? He presented to the ED 2 days ago for persistent left flank pain and had unremarkable renal CT. Patient followed up at the clinic again yesterday for persistent pain and was given oxycodone.? He states he last took oxycodone 1 hour ago prior to arrival with some relief.? He states the pain is 9/10 at its worst and is currently 5/10.? He describes the pain aching and sharp that is worse when laying on his right side or with reaching up with his right arm.? Work up in the ED shows pancreatitis and CT evidence of mesenteric panniculitis, unable to evaluate for pancreatitis with lack of IV contrast. Her case was discussed with surgeon manager environmental affairs who recommends, NPO and trend lipase. Hospitalist contacted and accepted patient in admission ? Review of Systems All systems reviewed & are unremarkable except as noted in HPI and below Constitutional Constitutional: Denies fever(s) Gastrointestinal Gastrointestinal: Reports abdominal pain, Denies constipation, Denies diarrhea, Denies nausea and Denies vomiting Genitourinary Genitourinary: Denies dysuria, Denies urinary frequency, Denies urinary incontinence and Denies urinary urgency Musculoskeletal Musculoskeletal: Denies back pain PFSH All Active Problems (Updated 11/21/21 @ 15:37 by Kandace Luis NP) Discharge planning issues (Acute) DVT prophylaxis (Acute) Pancreatitis (Chronic) Right flank pain (Acute) Right-sided back pain (Acute) Medial epicondylitis of left elbow (Acute) Tubular adenoma (Acute ~07/2020) Diverticula of colon (Acute) Type II diabetes mellitus with complication, uncontrolled (Acute) Other and unspecified angina pectoris (Acute 05/19/02) stent placement Obstructive sleep apnea syndrome (Acute 12/06/12) Hyperlipidemia (Acute 05/19/91) type IV lipids Essential hypertension (Acute 06/05/13) Elev transaminase/LDH (Acute) Hypertriglyceridemia (Acute) Obesity (Chronic) Incomplete bladder emptying (Acute) Tinnitus (Acute) Sensorineural hearing loss of both ears (Acute) Medical History (Updated 11/21/21 @ 15:37 by Kandace Luis NP) Colon polyp 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 states he has no issues Family History Mother , age 82 Diabetes Heart disease Hyperlipidemia Father , age 82 Heart disease Hyperlipidemia Stroke Sister Hyperlipidemia Brother Diabetes Essential hypertension Heart disease Alcohol abuse Substance abuse Maternal Grandfather , age 80 Diabetes Heart disease Hyperlipidemia Paternal Grandfather , age 82 Essential hypertension Heart disease Hyperlipidemia Diabetes Maternal Grandmother , age 70 Diabetes Paternal Grandmother , age 40 No problems noted. Sister Depression Sister , age 40 Alcohol abuse Brother Diabetes Heart disease Substance abuse Brother Heart disease Daughter No problems noted. Daughter No problems noted. Daughter No problems noted. Social History (Updated 12/19/20 @ 14:30 by Afia Berry) Smoking/Tobacco Use Status: Former Tobacco Use tobacco type: cigarettes Quit Date: 06/20/69 Tobacco: How many years used: 6 Second Hand Exposure: Yes Smoking risk assessment performed?: Yes Alcohol Intake: current Alcohol Intake frequency: a few times a week Alcohol type: hard liquor Drug use: Daily Substance use type: marijuana Caregiver/Support person: Yes Household members: significant other Housing: house Communication Needs: Hard of Hearing Do you need help understanding health information?: Rarely Pets and animals: Yes Pets and animals: dog(s) Sexually active: Yes Do you think of yourself as: straight/heterosexual Current gender identity: male What is your relationship status?: How often do you talk on the phone with friends or family?: three or more times per week How often do you get together with friends or relatives?: three or more times per week How often do you attend methodist or holiness services?: 1-3 times per year Do you belong to any clubs or organized social groups?: no Panel score (0-1 are the most socially isolated patients): 2 What type of physical activity do you participate in: bicycling, 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 and 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: skiing Duration: 15-30 minutes/day Frequency: 3-4 times per week Sharonda/Episcopalian: Jainism Special sharonda needs: No Seatbelt use: always Helmet use: Yes Helmet use: always Drive intox or ride w/intox patrol driver: No Do you feel safe at home: Yes Do you feel safe in your relationship?: Yes Meds Allergies and Home Medications Allergies Allergy/AdvReac Type Severity Reaction Status Date / Time No Known Allergies Allergy Verified 11/21/21 11:19 Home Medications Medication Instructions Recorded Confirmed Type multivitamin 1 tab PO DAILY 09/05/19 11/21/21 History vitamin B complex (B 1 tab PO DAILY 09/05/19 11/21/21 History Complex-Vitamin B12 tablet) ascorbic acid (vitamin C) 1,000 mg 1 gm PO DAILY 12/13/19 11/21/21 History tablet omega 2-nne-lhw-fish oil 1,000 mg 1 cap PO DAILY 01/25/20 11/21/21 History (120 mg-180 mg) capsule (Fish Oil) aspirin 81 mg chewable tablet 81 mg PO DAILY 04/03/21 11/21/21 History (Karie Chewable Low Dose Aspirin) atorvastatin 80 mg tablet (Lipitor) 80 mg PO DAILY #90 tab-caps 04/03/21 11/21/21 Rx bjzgluu-kyoyhjlpx-ofgm 333 mg-133 tab PO 04/03/21 11/20/21 History mg-5 mg tablet lisinopril 10 mg tablet 10 mg PO DAILY #90 tab-caps 04/03/21 11/21/21 Rx metformin 1,000 mg tablet 1,000 mg PO BID #180 tab-caps 04/03/21 11/21/21 Rx potassium gluconate 600 mg (99 mg) 600 mg PO DAILY 04/03/21 11/21/21 History tablet lancets 28 gauge (FreeStyle #100 ea 04/10/21 11/21/21 Rx Lancets) blood sugar diagnostic (FreeStyle #100 strips 06/25/21 11/21/21 Rx Lite Strips) blood-glucose meter (FreeStyle #1 ea 06/25/21 11/21/21 Rx Lite Meter kit) glipizide 10 mg tablet, extended 10 mg PO DAILY #90 tabs 07/22/21 11/21/21 Rx release 24 hr oxycodone 5 mg tablet 5 mg PO BID PRN pain #6 tabs 11/20/21 11/21/21 Rx Exam Const General: cooperative Nutritional Appearance: obese morbidly obese Orientation: alert, awake and oriented x3 HENMT Head: normal to inspection Ears: hearing grossly normal bilaterally and external ears normal Face and sinus: normal facial exam Mouth: oral mucosae normal Eyes General: appearance normal, both eyes and all related structures Eyelids: eyelids normal Pupils: PERRL EOM: EOM intact bilaterally Neck Neck: normal visual inspection Lymphatic: no lymphadenopathy noted Chest Chest: normal inspection of the chest Resp Effort & Inspection: normal respiratory effort and able to speak in complete sentences Auscultation: clear to auscultation bilaterally Cardio Rate: regular rate Rhythm: regular rhythm GI Inspection: normal to inspection, obesity and scar (old middleline, well healed, deformity, right side, soft, non fluctuant) Palpation: soft, no guarding and nontender Auscultation: hypoactive bowel sounds Skin General skin exam: no rashes or lesions noted Neuro General: patient alert and patient awake Cognition: normal cognition Speech: speech normal Gait: normal gait Motor: muscle tone normal throughout Extrem General: normal to inspection, full ROM and capillary refill normal Psych Appearance: grossly normal Mental Status: mental status grossly normal Speech and Movement: speech and movement normal Affect: normal affect Thought Process: normal Results Labs Result diagrams: 11/21/21 11:48 11/21/21 11:48 Labs: Laboratory Results - last 24 hr 11/21/21 11/21/21 11/21/21 11:48 11:48 11:48 WBC 7.94 RBC 4.65 Hgb 14.1 Hct 42.5 MCV 91 MCH 30.3 MCHC 33.2 RDW 13.8 Plt Count 194 MPV 9.1 Immature Gran % 0.4 Neutrophils % 62.4 Lymphocytes % 26.6 Monocytes % 7.6 Eosinophils % 2.4 Basophils % 0.6 Nucleated RBC % 0.0 Absolute Neutrophils 4.96 Absolute Lymphocytes 2.11 Absolute Monocytes 0.60 Absolute Eosinophils 0.19 Absolute Basophils 0.05 Sodium 136 Potassium 4.4 Chloride 102 Carbon Dioxide 27.4 Anion Gap 6.6 BUN 23 H Creatinine 1.0 Estimated GFR/1.73 m2 >= 60.00 Glucose 102 Calcium 9.0 Total Bilirubin 0.7 AST 12 L ALT 29 Alkaline Phosphatase 67 Total Protein 7.4 Albumin 4.0 Lipase 1618 H Urine Color Yellow Urine Clarity Clear Urine pH 5.5 Ur Specific [place] 1.015 Urine Protein Negative Urine Ketones Negative Urine Blood Negative Urine Nitrite Negative Urine Bilirubin Negative Urine Urobilinogen 0.2 Ur Leukocyte Esterase Negative Urine Glucose Negative Last Vital Signs Temp 36.6 C 11/21/21 11:15 Pulse 71 11/21/21 11:15 Resp 18 11/21/21 11:15 BP 151/54 H 11/21/21 11:15 Pulse Ox 95 11/21/21 11:15 PAWSS Have you Been Recently Intoxicated or Drunk Within the Last 30 days?: No Have you Ever Experienced Previous Episodes of Alcohol Withdrawal?: No Have you ever Experienced Withdrawal Seizures?: No Have you ever Experienced Delirium Tremens(DT)s?: No Have you ever undergone Alcohol Rehabilitation Treatment (i.e, inpt ot outpatient treatment programs)?: No Have you ever Experienced Blackouts?: No Have you ever Combined Alcohol with other Downers within the last 90 days?: No Have you ever Combined Alcohol with any other Substance of Abuse during the last 90 days?: No Positive Blood Alcohol level on Presentation? [PCS.BAL]: No Evidence of Increased Autonomic Activity (i.e. HR>120, tremor, sweating, agitation, nausea)?: No Result: 0
[2021-11-21] MEDS: HYDROmorphone 2 MG/ML VIAL 0.5 MG IVP (15:34)
[2021-11-21] MEDS: Normal Saline 1,000 ML 150 ML IV (15:35)
[2021-11-21] MEDS: Lactated Ringers 1,000 ML 175 ML IV ×2 (15:43→22:07)
[2021-11-21 16:34] LABS: Source Nasal/Nares
[2021-11-21 16:50] VITALS: BP 142/80; PULSE 76; RESP 18; TEMP 36.6; O2SAT 99
[2021-11-21 16:54] VITALS: BP 163/73; PULSE 67; RESP 18; TEMP 36.4; O2SAT 95
[2021-11-21 17:33] LABS: COVID-19 PCR Negative (Negative)
--- NOTE | 2021-11-21 17:47 | SCONE_ITS ---
Date of service: 11/21/21 Time of Service: 20:30 Assessment and Plan Assessment and plan (1) Acute herpes zoster neuropathy: Status: Acute Assessment and plan: I think this man's pain is secondary to Shingles over a specific dermatome. 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 No surgical correction is indicated or even possible since this is an underlying neurologic problem rather than a structural problem/defect. I have relayed my opinion to the hospitalist. Even though he does not have the classic skin rash, Shingles can present without the rash and I think this is one such case. There may be a component of pancreatitis associated with this considering the elevated Lipase, but this is mild and should resolve with aggressive hydration and limiting PO intake for a day or so. There are isolated case reports linking Shingles with Pancreatitis . . . No further surgical input should be needed and I'll sign off for now. Call me back if anything otherwise changes. History of Present Illness History of Present Illness Chief Complaint: Back pain and a bulge Narrative: 71 yo man was in a usual state of health until 10 days ago when he developed back pain. Is constant and slowly worsened over the next couple of days and has since stayed the same. It doesn't move. It is exacerbated by movement such as reaching or bending over. For about the last 3-5 days he has noticed a distinct bulge on his right abdominal wall. This was never there before. It doesn't hurt, but protrudes impressively. No fevers. No bowel habit changes. No N/V. He has never had anything like th is before. He has had testicular cancer and had a full RPLND about 20 years ago or so. He has had his GB removed. This pain is nothing like that was. He denies urinary issues. [facility] All Active Problems (Updated 11/21/21 @ 21:51 by Preston Jackson MD) Acute herpes zoster neuropathy (Acute) Discharge planning issues (Acute) DVT prophylaxis (Acute) Pancreatitis (Chronic) Right flank pain (Acute) Right-sided back pain (Acute) Medial epicondylitis of left elbow (Acute) Tubular adenoma (Acute ~07/2020) Diverticula of colon (Acute) Type II diabetes mellitus with complication, uncontrolled (Acute) Other and unspecified angina pectoris (Acute 05/19/02) stent placement Obstructive sleep apnea syndrome (Acute 12/06/12) Hyperlipidemia (Acute 05/19/91) type IV lipids Essential hypertension (Acute 06/05/13) Elev transaminase/LDH (Acute) Hypertriglyceridemia (Acute) Obesity (Chronic) Incomplete bladder emptying (Acute) Tinnitus (Acute) Sensorineural hearing loss of both ears (Acute) Medical History (Updated 11/21/21 @ 21:51 by Preston Jackson MD) Colon polyp 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 states he has no issues Family History Mother , age 82 Diabetes Heart disease Hyperlipidemia Father , age 82 Heart disease Hyperlipidemia Stroke Sister Hyperlipidemia Brother Diabetes Essential hypertension Heart disease Alcohol abuse Substance abuse Maternal Grandfather , age 80 Diabetes Heart disease Hyperlipidemia Paternal Grandfather , age 82 Essential hypertension Heart disease Hyperlipidemia Diabetes Maternal Grandmother , age 70 Diabetes Paternal Grandmother , age 40 No problems noted. Sister Depression Sister , age 40 Alcohol abuse Brother Diabetes Heart disease Substance abuse Brother Heart disease Daughter No problems noted. Daughter No problems noted. Daughter No problems noted. Social History (Updated 12/19/20 @ 14:30 by Afia Berry) Smoking/Tobacco Use Status: Former Tobacco Use tobacco type: cigarettes Quit Date: 06/20/69 Tobacco: How many years used: 6 Second Hand Exposure: Yes Smoking risk assessment performed?: Yes Alcohol Intake: current Alcohol Intake frequency: a few times a week Alcohol type: hard liquor Drug use: Daily Substance use type: marijuana Caregiver/Support person: Yes Household members: significant other Housing: house Communication Needs: Hard of Hearing Do you need help understanding health information?: Rarely Pets and animals: Yes Pets and animals: dog(s) Sexually active: Yes Do you think of yourself as: straight/heterosexual Current gender identity: male What is your relationship status?: How often do you talk on the phone with friends or family?: three or more times per week How often do you get together with friends or relatives?: three or more times per week How often do you attend congregational or nondenominational services?: 1-3 times per year Do you belong to any clubs or organized social groups?: no Panel score (0-1 are the most socially isolated patients): 2 What type of physical activity do you participate in: bicycling, 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 Neuro: AxOx3 Psych: Appropriate mood and affect Abdomen: Soft, nontender and nondistended. There is a well-healed midline surgical scar. A palpable ventral hernia is soft, reducible and not tender. A large bulging of the right abdominal side wall is very notable. It isn't tender to touch though the tender region of the back is directly behind this bulge and slightly higher. Back: Mild/moderate tenderness to palpation from center back to mid-axillary line over a distinct region of 4-5 cm Results Last Vital Signs Temp 97.5 F L 11/21/21 16:54 Pulse 67 11/21/21 16:54 Resp 18 11/21/21 16:54 BP 163/73 H 11/21/21 16:54 Pulse Ox 95 11/21/21 16:54 Labs Result diagrams: 11/21/21 11:48 11/21/21 11:48 Labs: Laboratory Results - last 24 hr 11/21/21 11/21/21 11/21/21 11:48 11:48 11:48 WBC 7.94 RBC 4.65 Hgb 14.1 Hct 42.5 MCV 91 MCH 30.3 MCHC 33.2 RDW 13.8 Plt Count 194 MPV 9.1 Immature Gran % 0.4 Neutrophils % 62.4 Lymphocytes % 26.6 Monocytes % 7.6 Eosinophils % 2.4 Basophils % 0.6 Nucleated RBC % 0.0 Absolute Neutrophils 4.96 Absolute Lymphocytes 2.11 Absolute Monocytes 0.60 Absolute Eosinophils 0.19 Absolute Basophils 0.05 VBG Lactate Sodium 136 Potassium 4.4 Chloride 102 Carbon Dioxide 27.4 Anion Gap 6.6 BUN 23 H Creatinine 1.0 Estimated GFR/1.73 m2 >= 60.00 Glucose 102 Calcium 9.0 Total Bilirubin 0.7 AST 12 L ALT 29 Alkaline Phosphatase 67 Total Protein 7.4 Albumin 4.0 Lipase 1618 H Urine Color Yellow Urine Clarity Clear Urine pH 5.5 Ur Specific [place] 1.015 Urine Protein Negative Urine Ketones Negative Urine Blood Negative Urine Nitrite Negative Urine Bilirubin Negative Urine Urobilinogen 0.2 Ur Leukocyte Esterase Negative Urine Glucose Negative COVID-19 Source SARS-CoV-2 (PCR) 11/21/21 11/21/21 15:49 16:20 WBC RBC Hgb Hct MCV MCH MCHC RDW Plt Count MPV Immature Gran % Neutrophils % Lymphocytes % Monocytes % Eosinophils % Basophils % Nucleated RBC % Absolute Neutrophils Absolute Lymphocytes Absolute Monocytes Absolute Eosinophils Absolute Basophils VBG Lactate 1.0 Sodium Potassium Chloride Carbon Dioxide Anion Gap BUN Creatinine Estimated GFR/1.73 m2 Glucose Calcium Total Bilirubin AST ALT Alkaline Phosphatase Total Protein Albumin Lipase Urine Color Urine Clarity Urine pH Ur Specific [place] Urine Protein Urine Ketones Urine Blood Urine Nitrite Urine Bilirubin Urine Urobilinogen Ur Leukocyte Esterase Urine Glucose COVID-19 Source Nasal/Nares SARS-CoV-2 (PCR) Negative
--- NOTE | 2021-11-21 19:04 | DI.CT_ITS ---
Exam(s) CT ABDOMEN PELVIS CTA EXAM: CT ABDOMEN PELVIS CTA CLINICAL HISTORY: abdominal pain ischemic bowel, renal infarct, absc. TECHNIQUE: Imaging Protocol: Axial computed tomography images with coronal and sagittal reformatted images were created and reviewed CONTRAST MATERIAL: Intravenous: visipaque-320 Contrast volume:83 Oral: Yes COMPARISON: CT CT RENAL COLIC WO from 11/19/[address] CHEST/ABD/PEL WO from 11/21/2021 FINDINGS: ABDOMINAL AORTA: Surgical clips are seen around the abdominal aorta and IVC. Most probably related t o prior zenobia dissection. No obvious para-aortic adenopathy at this time. There is no evidence of a bdominal aortic aneurysm. No evidence of dissection. The abdominal aorta is partially is calcified but not enlarged. No evidence of significant stenosis at the aortic bifurcation nor in the common an d external iliac arteries and both common femoral arteries are patent with some posterior wall calcif ied plaque. The celiac and superior mesenteric arteries are patent. No tight stenosis at their orig ins. Inferior mesenteric artery is also patent. Visualize renal arteries are patent and both kidney s exhibit normal size. ABDOMEN: There is no ascites. LIVER: There are no focal hepatic lesions nor dilatation of intrahepatic ducts. GALLBLADDER/BILIARY: Gallbladder surgically absent. CBD is not dilated. PANCREAS: No evidence of pancreatic mass nor dilatation of the pancreatic duct. SPLEEN: Spleen is not enlarged. There are no intrasplenic lesions. Splenic and portal veins are dunham nt. ADRENALS: There are no significant adrenal masses. KIDNEYS: No cysts evident. No calculi nor hydronephrosis. No solid renal masses. ABDOMINAL AORTA: As above LYMPH NODES: There is no retroperitoneal nor para-aortic adenopathy. No prominent mesenteric masses. ABDOMINAL WALL: No evidence of significant anterior abdominal wall hernia. GI: There is no evidence of bowel obstruction, free air, nor abscess. PELVIS: LYMPH NODES: There is no intrapelvic nor inguinal adenopathy. GI: No evidence of appendicitis.No evidence of sigmoid diverticulitis. URINARY BLADDER: No calculi nor masses evident REPRODUCTIVE: Prostate size upper normal. Seminal vesicles unremarkable. OSSEOUS: Multilevel chronic degenerative disc disease. Mild degenerative anterolisthesis of L4 upon L5. No significant osseous lesions. IMPRESSION: 1. No evidence of abdominal aortic aneurysm nor dissection. No significant stenosis at the origin of the vessels off of the abdominal aorta. Also no significant stenosis at the aortic bifurcation nor within the aortoiliac segments. 2. Gallbladder surgically absent. Biliary tree is not significantly dilated. 3. Evidence of previous retroperitoneal surgery. Multiple clips seen around the aorta and IVC. No m asses seen at these levels. There are few small mesenteric lymph nodes noted which do not appear to be obviously pathologic. Study 1st read by [facility] RADIATION DOSE DELIVERED: 1,849.92mGy.cm Total DLP DATA REPOSITORY: All CT scans at this facility are submitted to the National Radiology Data Registry (NRDR) Dose Index Registry (DIR) with the [employer] (ACR). RADIATION OPTIMIZATION: All CT scans at this facility use at least one of these dose optimization te chniques: automated exposure control; mA and/or kV adjustment per patient size (includes targeted exa ms where dose is matched to clinical indication); or iterative reconstruction.
[2021-11-21 19:22] VITALS: BP 145/75; PULSE 61; RESP 20; TEMP 36; O2SAT 93
--- NOTE | 2021-11-21 19:47 | DI.VRAD_ITS ---
PROCEDURE INFORMATION: Exam: CT Angiography Abdomen and Pelvis With Contrast, GI Bleeding Exam date and time: 11/21/2021 6:58 PM Age: 71 years old Clinical indication: Other: Abdominal pain ischemic bowel, renal infarct, absc TECHNIQUE: Imaging protocol: Computed tomographic angiography of the abdomen and pelvis with contrast. 3D rendering (Not supervised by radiologist): MIP and/or 3D reconstructed images were created by the technologist. Radiation optimization: All CT scans at this facility use at least one of these dose optimization techniques: automated exposure control; mA and/or kV adjustment per patient size (includes targeted exams where dose is matched to clinical indication); or iterative reconstruction. Contrast material: VISIPAQUE 320; Contrast volume: 83 ml; Contrast route: INTRAVENOUS (IV); COMPARISON: CT CHEST/ABD/PEL WO 11/21/2021 1:44 PM FINDINGS: Lungs: Mild bronchial wall thickening of the lung bases may represent bronchitis. Some areas of linear scarring versus atelectasis are also noted posteriorly in both lung bases. No acute infiltrates. Pleural space: No pleural effusion. Heart: Normal heart size. Mild coronary artery atherosclerotic calcium. No pericardial effusion. Aorta: The abdominal aorta is normal in course and caliber. Mild atherosclerotic calcium. No aneurysm. Celiac trunk and mesenteric arteries: Celiac artery origin mild stenosis at approximately 20% diameter. Mild atherosclerotic calcium. Superior mesenteric artery origin is widely patent. Renal arteries: Right renal artery origin widely patent. Left renal artery origin widely patent. Right iliac arteries: Right common iliac artery atherosclerotic calcium. No aneurysm or stenosis. Left iliac arteries: Left common iliac artery atherosclerotic calcium. No aneurysm or stenosis. Liver: Diffuse mild fatty liver change. No focal hepatic pathology. Gallbladder and bile ducts: Patient has had a previous cholecystectomy. There is no biliary dilatation. There are no ductal stones visible. Pancreas: The pancreas is normal in contour and attenuation. Spleen: Spleen is unremarkable in contour and size. Normal enhancement and attenuation. Adrenal glands: The adrenal glands are normal in size and contour bilaterally. Kidneys and ureters: Kidneys are unremarkable. No hydronephrosis. No inflammation. No calculi. Stomach and bowel: Gastric contour is unremarkable. No edema. No gastric outlet obstruction. Minor hiatal hernia. No acute features. Small bowel loops are unremarkable in course and caliber. There is some fluid retention and a few scattered air-fluid levels. For example, see series 4, images 55 through 63. A mild small bowel enteritis cannot be excluded. Large bowel is normal in course and caliber. There is enteric contrast throughout the colon. This is likely related to a CT scan performed approximately 6 hours earlier. Appendix: No evidence of appendicitis. Intraperitoneal space: Minor fatty stranding of the mesenteric root and a few non enlarged lymph nodes. This could be secondary to a small bowel enteritis. This is nonspecific.. No free air. No significant fluid collection. Retroperitoneal space: Retroperitoneum with multiple surgical clips. Recommend clinical correlation. Lymph nodes: Unremarkable. No enlarged lymph nodes. Urinary bladder: Unremarkable. No mass. Reproductive: Mild prostate enlargement. Nonspecific calcifications. Recommend correlation with PSA. Bones/joints: No acute fracture. No dislocation. Soft tissues: Minor fat containing umbilical hernia. No acute strangulation. Small fat containing left inguinal hernia. No acute strangulation. IMPRESSION: 1. Small bowel features suggesting a mild enteritis. No mechanical obstruction. 2. Abdominal aorta and mesenteric vessels are unremarkable. No occlusion. No significant stenosis. Mild celiac artery origin stenosis. 3. Previous cholecystectomy. 4. Previous retroperitoneal surgery. 5. Degenerative lumbar spine disease. 6. Mild mesenteric root fatty stranding and a few nonenlarged lymph nodes. These could represent sequela of a small bowel enteritis. 7. Minor posterior lung base atelectasis. Dictated and Authenticated by: Case Riggs MD. Ordering:DANNIE Jeronimo MD
[2021-11-21] MEDS: Atorvastatin 40 MG TAB 80 MG PO (21:00)
[2021-11-21] MEDS: Ketorolac 15 MG/ML VIAL IVP (22:14)
[2021-11-21] MEDS: valACYclovir 1,000 MG TAB 1000 MG PO (22:15)
[2021-11-21] MEDS: Normal Saline Flush 10 ML SYR IVP (22:15)
[2021-11-22 00:05] VITALS: BP 115/68; PULSE 66; RESP 16; TEMP 36.7; O2SAT 95
[2021-11-22] MEDS: Lactated Ringers 1,000 ML 175 ML IV ×2 (03:40→09:55)
[2021-11-22] MEDS: valACYclovir 1,000 MG TAB 1000 MG PO ×2 (05:55→13:46)
[2021-11-22 06:32] LABS: Abs Immature Grans 0.02 10^3/uL (0.0-0.06); Absolute Basophil Count 0.04 10^3/uL (0.0-0.2); Absolute Eosinophil Count 0.16 10^3/uL (0.0-0.7); Absolute Lymphocyte Count 1.32 10^3/uL (1.2-3.4); Absolute Monocyte Count 0.46 10^3/uL (0.1-0.8); Absolute Neutrophil Count 4.23 10^3/uL (1.2-6.7); Basophils % 0.6; Eosinophils % 2.6; HCT 37.9 % (40.0-50.0); HGB 12.5 g/dL (13.5-17.5); Immature Grans % 0.3; Lymphocytes % 21.2; MCH 30.3 pg (27.0-33.0); MCV 92 fL (80-95); MPV 9.4 fL (8.0-11.0); Monocytes % 7.4; Neutrophils % 67.9; Platelet Count 169 10^3/uL (130-400); RBC 4.13 10^6/uL (4.36-5.78); RDW 13.8 % (11.8-14.1); RDW-SD 46.6 fL; WBC 6.23 10^3/uL (4.4-10.8)
[2021-11-22 06:46] LABS: ALT 38 U/L (16-63); AST 21 U/L (15-37); Albumin 3.1 g/dL (3.4-5.0); Alkaline Phosphatase 60 U/L (46-116); Anion Gap 4.2 mmol/L (3-11); BUN 16 mg/dL (7-18); Bilirubin, Total 1.3 mg/dL (0.2-1.0); CO2 27.8 mmol/L (21.0-32.0); CREATININE 0.9 mg/dL (0.70-1.30); Calcium 8.5 mg/dL (8.5-10.1); Chloride 106 mmol/L (98-107); Glucose 131 mg/dL (74-106); Lipase 83 U/L (73-393); Potassium 4.4 mmol/L (3.5-5.1); Sodium 138 mmol/L (136-145); Total Protein 5.9 g/dL (6.4-8.2)
[2021-11-22 09:30] VITALS: BP 136/69; PULSE 63; RESP 17; TEMP 36.7; O2SAT 92
[2021-11-22] MEDS: Multivitamin TAB 1 TAB PO (09:33)
[2021-11-22] MEDS: Enoxaparin 40 MG/0.4 ML SYR SC (09:33)
[2021-11-22] MEDS: Aspirin 81 MG CHEW PO (09:34)
[2021-11-22] MEDS: Ascorbic Acid 500 MG TAB 1000 MG PO (09:34)
--- NOTE | 2021-11-22 10:08 | W.PM.PROGNOT ---
Date of Service Date of service: 11/22/21 Time of Service: 09:08 Assessment and Plan Assessment and plan (1) Acute herpes zoster neuropathy: Status: Acute Assessment and plan: per surgery, the patient's RUQ and right flank pain are d/t an internal herpes zoster neuropathy that is affecting a dermatomal pattern along his right costal margin. The patient has clinically improved since he started on valcyclovir yesterday. I will add gabapentin for added pain control. His lipase has normalized. I have seen HZV that did not have a component of a rash nor have I seen an elevated lipase w/ HZV. Nevertheless his lipase is normal. If he tolerates his diet then he can return home. I will treat him for 7 days w/ valacyclovir 1000 mg q8hr and gabapentin 100 mg tid. (2) Right flank pain: Status: Acute Assessment and plan: as above. Subjective Subjective Interval history since last seen: Vince feels much better today. His RUQ pain and right flank pain have improved. No nausea or vomiting. His lipase is back to normal. He would like something more to eat than clear liquids. I told him that I would advance his diet for lunch and if he is tolerating his diet he could go home this evening. Exam Narrative Exam Narrative: Abdomen: he has a slight hernia over the right side of his abdomen; but his abdomen has minimal tendreness only with deep palpation in the RUQ and right flank. no rebound tenderness or guarding. I could not see any dermatomal rash over his abdomen nor over his flank Objective Last Vital Signs Temp 36.7 C 11/22/21 00:05 Pulse 66 11/22/21 00:05 Resp 16 11/22/21 00:05 BP 115/68 11/22/21 00:05 Pulse Ox 95 11/22/21 00:05 Laboratory Results - last 24 hr 11/21/21 11/21/21 11/21/21 11:48 11:48 11:48 WBC 7.94 RBC 4.65 Hgb 14.1 Hct 42.5 MCV 91 MCH 30.3 MCHC 33.2 RDW 13.8 Plt Count 194 MPV 9.1 Immature Gran % 0.4 Neutrophils % 62.4 Lymphocytes % 26.6 Monocytes % 7.6 Eosinophils % 2.4 Basophils % 0.6 Nucleated RBC % 0.0 Absolute Neutrophils 4.96 Absolute Lymphocytes 2.11 Absolute Monocytes 0.60 Absolute Eosinophils 0.19 Absolute Basophils 0.05 VBG Lactate Sodium 136 Potassium 4.4 Chloride 102 Carbon Dioxide 27.4 Anion Gap 6.6 BUN 23 H Creatinine 1.0 Estimated GFR/1.73 m2 >= 60.00 Glucose 102 Calcium 9.0 Total Bilirubin 0.7 AST 12 L ALT 29 Alkaline Phosphatase 67 Total Protein 7.4 Albumin 4.0 Lipase 1618 H Urine Color Yellow Urine Clarity Clear Urine pH 5.5 Ur Specific [place] 1.015 Urine Protein Negative Urine Ketones Negative Urine Blood Negative Urine Nitrite Negative Urine Bilirubin Negative Urine Urobilinogen 0.2 Ur Leukocyte Esterase Negative Urine Glucose Negative COVID-19 Source SARS-CoV-2 (PCR) 11/21/21 11/21/21 11/22/21 15:49 16:20 06:05 WBC RBC Hgb Hct MCV MCH MCHC RDW Plt Count MPV Immature Gran % Neutrophils % Lymphocytes % Monocytes % Eosinophils % Basophils % Nucleated RBC % Absolute Neutrophils Absolute Lymphocytes Absolute Monocytes Absolute Eosinophils Absolute Basophils VBG Lactate 1.0 Sodium 138 Potassium 4.4 Chloride 106 Carbon Dioxide 27.8 Anion Gap 4.2 BUN 16 Creatinine 0.9 Estimated GFR/1.73 m2 >= 60.00 Glucose 131 H Calcium 8.5 Total Bilirubin 1.3 H AST 21 ALT 38 Alkaline Phosphatase 60 Total Protein 5.9 L Albumin 3.1 L Lipase 83 Urine Color Urine Clarity Urine pH Ur Specific [place] Urine Protein Urine Ketones Urine Blood Urine Nitrite Urine Bilirubin Urine Urobilinogen Ur Leukocyte Esterase Urine Glucose COVID-19 Source Nasal/Nares SARS-CoV-2 (PCR) Negative 11/22/21 06:05 WBC 6.23 RBC 4.13 L Hgb 12.5 L Hct 37.9 L MCV 92 MCH 30.3 MCHC 33.0 RDW 13.8 Plt Count 169 MPV 9.4 Immature Gran % 0.3 Neutrophils % 67.9 Lymphocytes % 21.2 Monocytes % 7.4 Eosinophils % 2.6 Basophils % 0.6 Nucleated RBC % 0.0 Absolute Neutrophils 4.23 Absolute Lymphocytes 1.32 Absolute Monocytes 0.46 Absolute Eosinophils 0.16 Absolute Basophils 0.04 VBG Lactate Sodium Potassium Chloride Carbon Dioxide Anion Gap BUN Creatinine Estimated GFR/1.73 m2 Glucose Calcium Total Bilirubin AST ALT Alkaline Phosphatase Total Protein Albumin Lipase Urine Color Urine Clarity Urine pH Ur Specific [place] Urine Protein Urine Ketones Urine Blood Urine Nitrite Urine Bilirubin Urine Urobilinogen Ur Leukocyte Esterase Urine Glucose COVID-19 Source SARS-CoV-2 (PCR) PAWSS Have you Been Recently Intoxicated or Drunk Within the Last 30 days?: No Have you Ever Experienced Previous Episodes of Alcohol Withdrawal?: No Have you ever Experienced Withdrawal Seizures?: No Have you ever Experienced Delirium Tremens(DT)s?: No Have you ever undergone Alcohol Rehabilitation Treatment (i.e, inpt ot outpatient treatment programs)?: No Have you ever Experienced Blackouts?: No Have you ever Combined Alcohol with other Downers within the last 90 days?: No Have you ever Combined Alcohol with any other Substance of Abuse during the last 90 days?: No Positive Blood Alcohol level on Presentation? [PCS.BAL]: No Evidence of Increased Autonomic Activity (i.e. HR>120, tremor, sweating, agitation, nausea)?: No Result: 0
[2021-11-22] MEDS: Gabapentin 100 MG CAP PO ×2 (11:41→13:46)
[2021-11-22] MEDS: Normal Saline Flush 10 ML SYR IVP (11:42)
--- NOTE | 2021-11-22 13:41 | PDOC.CMIN ---
- If Service Date Differs Date of service: 11/22/21 Time of Service: 13:41 Care Management Initial Assess REASON FOR HOSPITALIZATION:: Pancreatitis PAST MEDICAL HISTORY/PAST SURGICAL HISTORY:: All Active Problems (Updated 11/21/21 @ 15:37 by Kandace Luis NP). Discharge planning issues (Acute). DVT prophylaxis (Acute). Pancreatitis (Chronic). Right flank pain (Acute). Right-sided back pain (Acute). Medial epicondylitis of left elbow (Acute). Tubular adenoma (Acute ~07/2020). Diverticula of colon (Acute). Type II diabetes mellitus with complication, uncontrolled (Acute). Other and unspecified angina pectoris (Acute 05/19/02). stent placement. Obstructive sleep apnea syndrome (Acute 12/06/12). Hyperlipidemia (Acute 05/19/91). type IV lipids. Essential hypertension (Acute 06/05/13). Elev transaminase/LDH (Acute). Hypertriglyceridemia (Acute). Obesity (Chronic). Incomplete bladder emptying (Acute). Tinnitus (Acute). Sensorineural hearing loss of both ears (Acute). Medical History (Updated 11/21/21 @ 15:37 by Kandace Luis NP). Colon polyp. Mantoux: positive. 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 testicular mass=carcinoma; orchidectomy ; retroperitoneal dissection. Stitch granuloma. Surgical History (Updated 08/06/20 @ 13:36 by Socorro Ogden RN). Cholecystectomy. Hernia Repair, Incisional. X 2. History of colonoscopy with polypectomy (~07/29/20). Orchiectomy, Radical (~1990). U/L. Repair of inguinal hernia. RIGHT. Stent placement (~2002). 2002-pt. states he has no issues PREVIOUS FUNCTIONAL STATUS/SOCIAL/FAMILY SUPPORTS:: Vince lives in [facility] in a single family home with his Joseline. They have 3 children; two live in [place] close by and the third lives in [place]. They also have 2 grandchildren. 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 He is independent at baseline and describes himself as very active. Both he and Joseline continue to ride bicycles and ski, both down hill and cross country. CURRENT FUNCTIONAL STATUS:: Vince was sitting on the side of the bed playing cribbage with his Joseline when CM visited. They were both very pleasant and agreeable to conversation. 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 Joseline shared that she paid $4.99.9 per gallon for gas today and fears it will become even more expensive.vince verbalized that he hopes to be discharged later today as he is feeling much better. Has patient been provided with info about the portal/API?: Yes Did the patient sign up for the portal?: Yes (previously) CODE STATUS:: Full Code INSURANCE COVERAGE / FINANCIAL ISSUES:: Medicare. Harinder CURRENT HOME/COMMUNITY SERVICES/EQUIPMENT:: none PRIMARY CARE PHYSICIAN:: Rhonda Mesa POTENTIAL DISCHARGE NEEDS:: follow up with PCP and plan of care PATIENT/FAMILY EDUCATION NEEDS:: Review of discharge instructions, limitations, activity, follow up plan; discuss Ask Me [employer] TRANSPORTATION:: via private vehicle PLAN:: Vince will likely be discharged home with no new services. He will follow up with his community providers and plan of care and transport with family. CM will continue to follow and assess for ongoing discharge concerns.
[2021-11-22 15:20] VITALS: BP 122/59; PULSE 72; RESP 16; TEMP 36.9; O2SAT 91
--- NOTE | 2021-11-22 17:56 | W.PM.DS.N ---
Date of service: 11/22/21 Time of Service: 18:00 DS: Diagnosis Discharge Diagnosis (1) Acute herpes zoster neuropathy: Status: Acute Asessment and Plan: See admission H&P and surgeon's consult note for details. Patient presented w/ RUQ abdominal and right flank/right sided pain of one week to 10 days duration which initially he attributed to muscle strain after working in the yard. When pain persisted his PCP did office UA which showed trace of blood and this led to renal ultrasound which showed a non-obstructing stone in the left kidney. When his pain persisted and became worse and now was associated w/ right sided abdominal wall hernia, he underwent renal CT scan on 11/19 which demonstrated anterior abdominal wall umbilical/infra-umbilical hernia and left inguinal hernia containing fat but no bowel. He subsequently presented to the ED on 11/21 due to worsening pain at which time his lipase was elevated at 1618 but without any transaminase or alkaline phosphatase or bilirubin elevation. CT abdomen and pelvis w/out contrast was performed and did not show any evidence for pancreatitis and again showed the above mentioned hernias w/out any bowel incarceration. he had some non-specific mesenteric lymph nodes that were not pathologic and he has some paraortic clips from his remote surgery for his testicular cancer in which he had prior laparotomy and abdominal lymphadenectomy. The patient was admitted as a possible pancreatitis and made NPO and given analgesics and iv fluids. Surgical consult was requested from Dr. Preston Jackson who initially had been contacted by the ER physician. It was the impression of our hospitalist team that his pain, neither the quality nor the location were compatible w/ pancreatitis. A repeat CT scan of the abdomen and pelvis was done this time w/ iv contrast to rule out renal or bowel ischemia/infarct. The celiac and renal and mesenteric vessels were patent and no evidence was seen for any bowel, liver or renal ischemia. Dr. Jackson evaluated the patient on the evening of 11/21 and he indicated that the patient's pain seemed to fit a dermatomal pattern although the patient had no rash and the right abdominal wall bulge (not the anterior wall/periumbilical hernia) seemed to follow the same dermatomal pattern of his pain. Dr. Jackson indicated that this was a case of zoster sine herpete. The patient was started on valacyclovir 1000 mg po tid and gabapentin 100 mg tid. His lipase normalized overnight and his diet was advanced and he was discharged home. (2) Right flank pain: Status: Resolved (3) Elevated lipase: Status: Resolved Asessment and Plan: elevated lipase to 1600 on admission w/out hyperbilirubinemia, or transamintis. Lipase elevation resolved overnight w/ hydration and initiation of treatment for zoster sine herpete. He did not have any CT evidence of acute pancreatitis. Discharge Plan Disposition Patient Disposition: HOME Condition: Improving Discharge Details Reason For Visit: abdominal pain Admit Date/Time: 11/21/21 15:24 Admit Provider: Shiv Adams Attending Provider: Shiv Adams Primary Care Provider: Rhonda Mesa Home Meds and New Rx's Prescriptions: New valacyclovir 1 gram tablet 1,000 mg PO Q8H Qty: 18 0RF gabapentin 100 mg capsule 100 mg PO TID Qty: 60 0RF Continued multivitamin Tablet 1 tab PO DAILY vitamin B complex [B Complex-Vitamin B12] Tablet 1 tab PO DAILY omega 2-hxe-kvj-fish oil [Fish Oil] 1,000 mg (120 mg-180 mg) capsule 1 cap PO DAILY aspirin [Karie Chewable Aspirin] 81 mg tablet,chewable 81 mg PO DAILY eoebukp-czahupxbo-ccod 333-133-5 mg tablet PO potassium gluconate 600 mg (99 mg) tablet 600 mg PO DAILY atorvastatin [Lipitor] 80 mg tablet 80 mg PO DAILY Qty: 90 4RF lisinopril 10 mg tablet 10 mg PO DAILY Qty: 90 3RF metformin 1,000 mg tablet 1,000 mg PO BID Qty: 180 3RF oxycodone 5 mg tablet 5 mg PO BID MDD 10 PRN (Reason: pain) Qty: 6 0RF ascorbic acid (vitamin C) 1,000 mg tablet 1 gm PO DAILY (DME) lancets [FreeStyle Lancets] 28 gauge misc 1 ea Miscellaneous DAILY Qty: 100 3RF Rx Instructions: E11.9 test 2 x daily for diabetes (DME) FreeStyle Lite Strips Strip 1 ea Miscellaneous DAILY Qty: 100 3RF Rx Instructions: 2 x daily (DME) blood-glucose meter [FreeStyle Lite Meter] Kit See Rx Instructions .ROUTE .MEDSUPPLY Qty: 1 0RF Rx Instructions: 2 x daily glipizide 10 mg tablet extended release 24hr 10 mg PO DAILY Qty: 90 4RF Discharge Instructions Instructions: Shingles (DC) Stand Alone Forms: Nursing Discharge Form Activity:: Activity as Tolerated Equipment/Supplies:: No Equipment Needed Diet:: Normal Diet Discharge Orders Discharge Orders: Discharge Order (Routine); Ordered 11/22/21 Ordered By: Shiv Adams Discharge Data Discharge Date/Time-TO BE ENTERED AT DEPARTURE: 11/22/21 18:50 DS: Summary Time Spent with Patient providing and/or coordinating discharge services: Less than 30 minutes Status at Discharge Functional status at discharge: independent ambulation Overall status at discharge: patient is progressing back to baseline Mental Status: mental status grossly normal Speech and Movement: speech and movement normal Mood: congruent mood Affect: normal affect Exam Narrative Exam Narrative: Patient is feeling markedly better. He is tolerating his diet. No nausea or vomiting and his abdominal pain is much improved. Abdomen: soft, minimal tenderness over the right lateral infracostal margin. No rebound tenderness or guarding. No visible skin rash. Psych Mental Status: mental status grossly normal Speech and Movement: speech and movement normal Mood: congruent mood Affect: normal affect DS: Data Vitals/I&O Vitals and I&O: Vital Signs Temperature 36.9 C 11/22/21 15:20 Temperature Source Temporal Artery Scan 11/22/21 15:20 Pulse 72 11/22/21 15:20 Pulse Rhythm Regular 11/22/21 09:30 Respiratory Rate 16 11/22/21 15:20 Respiratory Effort Non-Labored 11/22/21 09:30 Respiratory Depth Normal 11/22/21 09:30 Respiratory Pattern Normal 11/22/21 09:30 Blood Pressure 122/59 L 11/22/21 15:20 Blood Pressure Position Sitting 11/21/21 11:15 Pulse Oximetry 91 L 11/22/21 15:20 Oxygen Delivery Method Room Air 11/22/21 15:20 Oxygen Flow Rate 0 11/22/21 15:20 Pain Level 4 11/22/21 15:20 Intake & Output 11/21/21 11/22/21 11/22/21 23:59 11:59 23:59 Intake Total 3122.5 / 3132.5 2283.333 / 3113.333 830 / 3113.333 Output Total 250 / 250 Balance 3122.5 / 3132.5 2033.333 / 2863.333 830 / 2863.333 Weight 102.058 kg Intake: IV 3022.5 / 3032.5 2283.333 / 2283.333 Oral 100 / 100 830 / 830 Output: Urine 250 / 250 Other: Urine Color Yellow Yellow Urine Appearance Clear Clear Comment Unmeasure amount of urine output. Unmeasure amount of urine output. Stool Size Moderate Stool Characteristics Soft Voiding Methods Toilet Urinal Data Completed and Pending Labs on day of discharge: Labs from last 24 hours 11/22/21 11/22/21 06:05 06:05 WBC 6.23 RBC 4.13 L Hgb 12.5 L Hct 37.9 L MCV 92 MCH 30.3 MCHC 33.0 RDW 13.8 Plt Count 169 MPV 9.4 Immature Gran % 0.3 Neutrophils % 67.9 Lymphocytes % 21.2 Monocytes % 7.4 Eosinophils % 2.6 Basophils % 0.6 Nucleated RBC % 0.0 Absolute Neutrophils 4.23 Absolute Lymphocytes 1.32 Absolute Monocytes 0.46 Absolute Eosinophils 0.16 Absolute Basophils 0.04 Sodium 138 Potassium 4.4 Chloride 106 Carbon Dioxide 27.8 Anion Gap 4.2 BUN 16 Creatinine 0.9 Estimated GFR/1.73 m2 >= 60.00 Glucose 131 H Calcium 8.5 Total Bilirubin 1.3 H AST 21 ALT 38 Alkaline Phosphatase 60 Total Protein 5.9 L Albumin 3.1 L Lipase 83 PFSH All Active Problems (Updated 11/24/21 @ 13:01 by Shiv Adams) Acute herpes zoster neuropathy (Acute) Right-sided back pain (Acute) Medial epicondylitis of left elbow (Acute) Tubular adenoma (Acute ~07/2020) Diverticula of colon (Acute) Type II diabetes mellitus with complication, uncontrolled (Acute) Other and unspecified angina pectoris (Acute 05/19/02) stent placement Obstructive sleep apnea syndrome (Acute 12/06/12) Hyperlipidemia (Acute 05/19/91) type IV lipids Essential hypertension (Acute 06/05/13) Elev transaminase/LDH (Acute) Hypertriglyceridemia (Acute) Obesity (Chronic) Incomplete bladder emptying (Acute) Tinnitus (Acute) Sensorineural hearing loss of both ears (Acute) Medical History Colon polyp 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 states he has no issues Family History Mother , age 82 Diabetes Heart disease Hyperlipidemia Father , age 82 Heart disease Hyperlipidemia Stroke Sister Hyperlipidemia Brother Diabetes Essential hypertension Heart disease Alcohol abuse Substance abuse Maternal Grandfather , age 80 Diabetes Heart disease Hyperlipidemia Paternal Grandfather , age 82 Essential hypertension Heart disease Hyperlipidemia Diabetes Maternal Grandmother , age 70 Diabetes Paternal Grandmother , age 40 No problems noted. Sister Depression Sister , age 40 Alcohol abuse Brother Diabetes Heart disease Substance abuse Brother Heart disease Daughter No problems noted. Daughter No problems noted. Daughter No problems noted. Social History Smoking/Tobacco Use Status: Former Tobacco Use tobacco type: cigarettes Quit Date: 06/20/69 Tobacco: How many years used: 6 Second Hand Exposure: Yes Smoking risk assessment performed?: Yes Alcohol Intake: current Alcohol Intake frequency: a few times a week Alcohol type: hard liquor Drug use: Daily Substance use type: marijuana Caregiver/Support person: Yes Household members: significant other Housing: house Communication Needs: Hard of Hearing Do you need help understanding health information?: Rarely Pets and animals: Yes Pets and animals: dog(s) Sexually active: Yes Do you think of yourself as: straight/heterosexual Current gender identity: male What is your relationship status?: How often do you talk on the phone with friends or family?: three or more times per week How often do you get together with friends or relatives?: three or more times per week How often do you attend adventist or baptism services?: 1-3 times per year Do you belong to any clubs or organized social groups?: no Panel score (0-1 are the most socially isolated patients): 2 What type of physical activity do you participate in: 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
== END 2021-11-22 18:50 | disposition home or self-care (01) | DRG 74 ==
LOC: ER 15:35 → MS 16:52
PROVIDERS: Nurse Practitioner Acute Care; Admitting Provider Internal Medicine; Emergency Provider Physician Assistant; PCP Nurse Practitioner; Visit Provider Internal Medicine
DX: B02.29 Other postherpetic nervous system involvement (principal); K86.1 Other chronic pancreatitis; E11.65 Type 2 diabetes mellitus with hyperglycemia; G47.33 Obstructive sleep apnea (adult) (pediatric); I10 Essential (primary) hypertension; E78.5 Hyperlipidemia, unspecified; N20.0 Calculus of kidney; M54.9 Dorsalgia, unspecified; K57.30 Diverticulosis of large intestine without perforation or abscess without bleeding; Z95.5 Presence of coronary angioplasty implant and graft; R74.01 Elevation of levels of liver transaminase levels; E78.1 Pure hyperglyceridemia; E66.9 Obesity, unspecified; Z68.31 Body mass index [BMI] 31.0-31.9, adult; R33.9 Retention of urine, unspecified; H90.3 Sensorineural hearing loss, bilateral; Z85.47 Personal history of malignant neoplasm of testis; Z86.010 Personal history of colon polyps; Z87.891 Personal history of nicotine dependence
CPT/HCPCS: 36415; 71250; 80053; 83690; 87635; 99223; J1650; 74174; 74176; 81003; 83605; 85025; 99238; J1885

== ENCOUNTER 2021-12-17 02:34 | Outpatient (CLI) | payer MEDICARE, OTHER, SELFPAY ==
[2021-12-17 14:29] LABS: Hemoglobin A1C 6.7 % (<5.7)
[2021-12-17 15:23] LABS: Calculated LDL 113 mg/dL (<100); Cholesterol 211 mg/dL (<200); HDL Cholesterol 48 mg/dL (40-60); Triglyceride 252 mg/dL (<150)
== END 2021-12-17 02:35 | disposition home or self-care (01) ==
LOC: LOS 02:34
PROVIDERS: PCP Nurse Practitioner; Visit Provider Nurse Practitioner
DX: I10 Essential (primary) hypertension (principal); E78.2 Mixed hyperlipidemia; E11.65 Type 2 diabetes mellitus with hyperglycemia
CPT/HCPCS: 36415; 80061; 83036

== ENCOUNTER → 2023-11-25 02:40 | Outpatient (CLI) | payer MEDICARE, OTHER, SELFPAY ==
--- NOTE | 2023-11-25 06:45 | DI.US_ITS ---
APPROVED REPORT EXAM: Comprehensive 2D, Doppler, and color-flow Echocardiogram Patient Location: Out-Patient [facility] Back Tender: Anusha Armstrong RT (R) (CT) [facility] Rhythm: NSR Indications: Cardiac murmur. Other Information Study Quality: Adequate Conclusion Normal left ventricular wall thickness and chamber size. Ejection fraction is 60 to 65%. Wall motio n is normal Normal right ventricular size and function Both atria are normal in size Aortic valve is trileaflet and mildly thickened. There is mild aortic stenosis. Peak gradient is 32 , mean 16 mmHg. Calculated aortic valve area is 1.6 cm??. There is no aortic regurgitation There is no additional significant valvular disease Wall motion Left Ventricle The left ventricle is normal size. The left ventricular systolic function is normal. There is normal left ventricular wall thickness. There is normal LV segmental wall motion. The left ventricular diast olic function is normal. There is no ventricular septal defect visualized. LVEF is 60-65%. Right Ventricle The right ventricle is normal size. The right ventricular systolic function is normal. There is joanne l right ventricular wall thickness. Atria The left atrium size is normal. The right atrium size is normal. The interatrial septum is intact wit h no evidence for an atrial septal defect. Aortic Valve Aortic valve is trileaflet. Aortic valve leaflets are mildly thickened. Mild aortic stenosis. Calcula josephine EARNEST by the continuity equation is 1.6 cm2. Peak velocity across the aortic valve is 2.9 m/s. Peak aortic valve gradient is 32.5 mmHg.Highest mean aortic valve gradient is 15.9 mmHg. No aortic regurg itation is present. Mitral Valve The mitral valve leaflets are minimally thickened with annular calcification. No evidence of mitral v alve stenosis. There is no mitral valve regurgitation noted. Tricuspid Valve The tricuspid valve is normal in structure. There is no tricuspid valve stenosis. Trace tricuspid reg urgitation. No pulmonary hypertension. Pulmonic Valve The pulmonary valve is normal in structure. There is no pulmonic valvular stenosis. Trace pulmonic re gurgitation. Great Vessels The aortic root is normal in size. The pulmonary artery is normal. The ascending aorta is normal in s ize. IVC is normal in size and collapses >50% with inspiration. Pericardium There is no pericardial effusion. 2D Dimensions IVSD d PLAX 0.92 cm M: 0.6-1.2 Ao Root d 3.16 cm M: 3.1 - 3.7 LVPW d PLAX 0.89 cm M: 0.6 - 1.2 Ao Asc Diam d 3.35 cm M: 2.6 - 3.4 LVID d PLAX 5.30 cm M: 4.2 - 5.8 Prox Ao Arch 2.7 cm LVDs 3.60 cm M: 2.5 - 4.0 IVC Diam exp d SLAX 2.2 cm LV EF Teichholz 59.7 % FS 32.04 % LV EDV (Teich) 135.3 mL LV ESV (Teich) 54.5 mL M-Mode TAPSE 2.85 cm (M/F) >1.7 Auto EF LV EDV A4C 76.4 mL LV EDV A2C 83.0 mL LV EDV BP 80.1 mL LV ESV A4C 24.8 mL LV ESV A2C 26.8 mL LV ESV BP 25.6 mL LVEF(%) A4C 67.6 % LVEF(%) A2C 67.8 % LVEF(%) BP 68.0 % LV SV A4C 51.6 ml LV SV A2C 56.3 ml LV SV BP 54.5 ml LV CO A4C 3.3 L/min LV CO A2C 3.5 L/min LV CO BP 3.4 L/min HR A4C 63.61 BPM HR A2C 62.61 BPM LV EDV Index (BP) LV Strain Long Pk Overal Avg (s) 17.44 LA Volume LA Length A4C 6.0 cm LA Length A2C 5.2 cm LA Area A4C s 17.79 cm2 LA Area A2C s 17.50 cm2 LA Vol A4C A-L 44.66 mL LA Vol A2C A-L 50.00 mL LA Vol Biplane A-L 50.8 mL LA Vol/BSA A4C A-L LA Vol/BSA A2C A-L LA Vol/BSA BP A-L 22.3 mL/m2 LA Vol A4C MOD 42.0 mL LA Vol A2C MOD 47.5 mL LA Vol BP MOD 47.8 mL LV Diastology MV E' medial 0.076 (>0.07 m/s) MV E Vmax 0.75 (0.4-1.3 m/s) MV E/E' MED 9.80 (<14) MV A Vmax 0.70 (0.4-1.3 m/s) MV E' lateral 0.078 (>0.1 m/s) E/A Ratio 1.1 MV E/E' LAT 9.53 (<14) MV E' Average 0.077 m/s MV E/E'(average) 9.66 Aortic Valve AoV Vmax 2.85 m/s LVOT Vmax 0.93 m/s AoV Peak Grad 32.5 mmHg LVOT Peak Grad 3.4 mmHg AoV VTI 0.545 m LVOT VTI 0.221 m AoV Mean Wilman. 1.85 m/s LVOT Mean Grad 1.7 mmHg AoV Mean Grad 15.9 mmHg Velocity Ratio 0.33 Mitral Valve MV DT 125 (160-240 msec) Pulmonary Valve RVOT Vmax 0.62 m/s RVOT Peak Gr. 1.5 mmHg RVOT VTI 0.140 m RVOT Mean Gr. 0.8 mmHg Tricuspid Valve RA Pressure 3.00 mmHg TV S' 0.10 m/s
== END ==
PROVIDERS: PCP Nurse Practitioner Family; Visit Provider Nurse Practitioner Family
DX: R01.1 Cardiac murmur, unspecified (principal)
CPT/HCPCS: 93306

== ENCOUNTER → 2024-04-05 10:36 | Outpatient (BNVA) | payer MEDICARE, OTHER, SELFPAY | PROVIDERS: PCP Nurse Practitioner Family; Referring Provider Nurse Practitioner Family; Visit Provider Physical Therapy Assistant | DX: Z12.11 Encounter for screening for malignant neoplasm of colon (principal); Z86.0101 Personal history of adenomatous and serrated colon polyps ==

== ENCOUNTER 2024-04-20 07:42 | Day surgery (SDC) | payer MEDICARE, OTHER, SELFPAY ==
--- NOTE | 2024-04-19 14:02 | W.PM.DSUDISC ---
Date of service: 04/20/24 Time of Service: 09:28 Discharge Plan Disposition Patient Disposition: Home Condition: Good Discharge Details Reason For Visit: screening colonoscopy Attending Provider: Alejandro Hoskins Primary Care Provider: Marcy Azar Home Meds and New Rx's Prescriptions: Continued multivitamin Tablet 1 tab PO DAILY vitamin B complex [B Complex-Vitamin B12] Tablet 1 tab PO DAILY omega 4-tst-ozr-fish oil [Fish Oil] 1,000 mg (120 mg-180 mg) capsule 1 cap PO DAILY aspirin [Karie Chewable Aspirin] 81 mg tablet,chewable 81 mg PO DAILY ascorbic acid (vitamin C) 1,000 mg tablet 1 gm PO DAILY (DME) FreeStyle Lite Strips Strip 1 ea Miscellaneous DAILY Qty: 100 3RF Rx Instructions: 2 x daily (DME) lancets [FreeStyle Lancets] 28 gauge misc 1 ea Miscellaneous DAILY Qty: 100 3RF Rx Instructions: E11.9 test 2 x daily for diabetes (DME) blood-glucose meter [FreeStyle Lite Meter] Kit See Rx Instructions .ROUTE .MEDSUPPLY Qty: 1 0RF Rx Instructions: 2 x daily atorvastatin [Lipitor] 80 mg tablet 80 mg PO DAILY Qty: 90 4RF lisinopril 10 mg tablet 10 mg PO DAILY Qty: 90 3RF metformin 1,000 mg tablet 1,000 mg PO BID Qty: 180 3RF potassium gluconate 600 mg (99 mg) tablet 600 mg PO DAILY Qty: 90 4RF semaglutide 2 mg/dose (8 mg/3 mL) pen injector 2 mg subcut QWEEK Qty: 3 6RF Discontinued bisacodyl [Dulcolax (bisacodyl)] 5 mg tablet,delayed release (DR/EC) 5 mg PO ONCE Qty: 4 0RF Rx Instructions: Take per colonoscopy instructions provided by ordering providers office polyethylene glycol 3350 17 gram/dose powder 17 g PO ONCE Qty: 238 0RF Rx Instructions: Take per colonoscopy instructions provided by ordering providers office Discharge Instructions Instructions: Colon polyps, Diverticulosis Additional Instructions: Vince, it was pleasure meeting you today, and I hope you are comfortable during the procedure. I did find and remove a total of 4 polyps today. All of these were quite small, none of them appear particularly worrisome to the naked eye. I will send these all off to the pathologist for their review. Polyps, and different varieties, and the nature of the polyps can inform us regarding the timing of your next colonoscopy. Incidentally, you also have a little bit of diverticulosis and some internal hemorrhoids. Diverticula are little weak spots in the wall of the colon and the cause the inside lining to pooch outwards a bit. This can get infected or inflamed during episodes that we refer to as diverticulitis. I hope you are is never bother you. I am attaching general information here about diverticular disease as well as colorectal polyps. The polyp report usually takes about a week or 2 to get the results, but once we have those we will certainly be in touch with final recommendations. If you have any questions in the meantime, please do not hesitate to ask. 1. If tolerated, consume a soft, low fiber diet for 1-2 days. [address] Do not drive, drink alcohol, operate machinery, make critical decisions, or do activities that require coordination or balance for 24 hours. 3. Because air was put into your colon during the procedure, expelling air from your rectum (passing gas or farting) is normal. 4. You may not have a bowel movement for 1-3 days because of the colonoscopy prep. This is normal. 5. Go directly to the emergency room if you notice any of the following: Develop chills (warm to touch), or if you have a thermometer and your temperature is above 101 Difficulty breathing or difficultly swallowing Persistent vomiting Severe abdominal pain, other than gas cramps Severe chest pain Black, tarry stools Any bleeding ? exceeding one tablespoon 6. Call your physician if the site where your intravenous was started becomes red, swollen, painful, and warm to touch. 7. Your physician has reviewed your pre-procedure medications. Please continue to take those medications as previously ordered. You will be given specific information/education regarding any changes to your medications before leaving. Activity:: Activity as Tolerated Diet:: As Tolerated Discharge Orders Discharge Orders: Discharge Order (Routine); Ordered 04/19/24 Ordered By: Alejandro Hoskins DS: Diagnosis Discharge Diagnosis (1) Encounter for screening colonoscopy: Status: Acute Asessment and Plan: Follow-up on polypectomy results
--- NOTE | 2024-04-19 14:04 | W.COLOREPORT ---
Date of service: 04/20/24 Time of Service: 09:36 Colonoscopy Report Date of procedure: 04/20/24 Pre-op diagnosis general: screening colonscopy Post-op diagnosis procedure note: other (Internal hemorrhoids, diverticulosis, colon polyps) Procedure: colonoscopy with polypectomy Surgeon: Alejandro Hoskins Anesthesia Type: General:No Airway Estimated blood loss (mL): 5 Pathology: other (0.25 cm polyp at 90 cm, 0.25 cm polyps around 75 cm x 3) Complications: None Disposition: same day Indications: Vince is a 73 year old manw with a history of adenomatous polyps who needs his next screening colonoscopy Prep: Miralax/Dulcolax Procedure Start Time: 08:54 Procedure End Time: 09:21 Retraction Time: 13 Findings: Transverse, sigmoid diverticulosis, colon polyps Procedure Description: After the induction of anesthesia, and with the patient in left lateral decubitus position, I began by performing an external anorectal exam.? Perineum and skin were normal, as was the anal verge.? There was no evidence of external hemorrhoids.? Next, I performed a digital rectal exam.? I did not appreciate any abnormal findings.? Next, I advanced a colonoscope into the rectal vault.? I performed retroflexion.? There are internal hemorrhoids.? Using insufflation, I then advanced the colonoscope beyond the rectal folds and into the sigmoid colon before advancing towards the cecum.? There is sigmoid diverticulosis.? The scope was noted to be in the cecum by identification of the ileocecal valve and appendiceal orifice.? I then began withdrawing the colonoscope using repeated irrigation as necessary for full evaluation of the colonic mucosa. Around 90 cm from the anal verge was a 0.25 cm flat polyp. This was removed with cold forceps. There was minimal bleeding. Similarly, around 75 cm from the anus was a small cluster of 3 polyps. Each was just a few centimeters away from 1 another around the circumference of the colon. Each of these was less than 0.25 cm, and each was flat. I removed all of these polyps with cold forceps. They were sent as a single specimen. There was minimal bleeding from the polypectomy sites. ?Once the scope was withdrawn to the level of the rectum, great care was taken to examine portions of the rectal folds.? Finally, the scope was withdrawn and the patient was brought to the same-day surgery recovery unit as the anesthetic wore off. ?The findings and instructions were shared with the patient prior to discharge. Hampton Bowel Prep Hampton Bowel Prep Right Colon: 3 Left Colon: 3 Transverse Colon: 3 Total Score: 9
[2024-04-20 07:50] VITALS: BP 124/63; PULSE 72; RESP 16; TEMP 36; O2SAT 95
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
[2024-04-20] MEDS: Normal Saline Flush 10 ML SYR IV (08:14)
[2024-04-20 08:44] VITALS: BMI 30.1
--- NOTE | 2024-04-20 09:06 | BOWEL_PTH ---
PATIENT: Vince Vazquez I LOC: [facility] U#:[id number] AGE/SX: 73/M ROOM: RE04/20/[address]: Alejandro Hoskins MD : [id number] BED: DIS: 04/20/2024 SPEC #: [id number] RECD: 04/20/24 12:47 STATUS: RAJINDER REQ #: [id number] GIOVANNI: 04/20/24 09:[address]: Alejandro Hoskins DEPT: Surgical Specimen RECD BY: Olga Smith ENTERED: 04/20/24 12:49 SP TYPE: Bowel OTHR DR: Marcy Azar, SCOTT Tissues: 1 - BIOPSY BOWEL 2 - BIOPSY BOWEL Procedures: GROSS AND MICRO LEVEL 4 Comments: [id number]
[2024-04-20 09:27] VITALS: BP 111/59; PULSE 69; RESP 18; TEMP 36.8; O2SAT 93
[2024-04-20 09:50] VITALS: BP 128/78; PULSE 68; RESP 18; TEMP 36.5; O2SAT 95
--- NOTE | 2024-04-20 10:15 | W.ANESPOSTOP ---
Postoperative Evaluation Date, Time and Location Date Performed: 04/20/24 Time Performed: 09:28 Patient Location: Day Surgery Unit Vital Signs Most Recent Imported Vital Signs: Most Recent Vital Signs Temp Pulse Resp BP Pulse Ox 36.5 C 68 18 128/78 95 04/20/24 09:50 04/20/24 09:50 04/20/24 09:50 04/20/24 09:50 04/20/24 09:50 Pain Score Most Recent Pain Score: Most Recent Pain Score Pain Level 0 04/20/24 09:50 Assessment Mental Status: Awake (Alert & Oriented to Patient Baseline) Airway and Respiratory Function: Patent airway with normal (patient baseline) respiratory exam Cardiovascular Function: Hemodynamically Stable Hydration Status: Adequately Hydrated Nausea & Vomiting: No Nausea or Vomiting Pain: Pt. Denies Any Pain Peripheral Nerve Block: Patient did not receive a nerve block
== END 2024-04-20 10:02 | disposition home or self-care (01) ==
PROVIDERS: PCP Nurse Practitioner Family; Visit Provider Surgery
PROC: 0DJD8ZZ Inspection of Lower Intestinal Tract, Via Natural or Artificial Opening Endoscopic (ICD-10-PCS; CPT 45378; principal; 2024-04-20 09:00)
DX: Z12.11 Encounter for screening for malignant neoplasm of colon (principal); I10 Essential (primary) hypertension; E11.9 Type 2 diabetes mellitus without complications; D12.3 Benign neoplasm of transverse colon; K57.30 Diverticulosis of large intestine without perforation or abscess without bleeding; K64.8 Other hemorrhoids; D12.4 Benign neoplasm of descending colon
CPT/HCPCS: 45380; 88305; J2704

== ENCOUNTER 2024-08-29 04:34 | Outpatient (CLI) | payer MEDICARE, OTHER, SELFPAY ==
[2024-08-29 12:58] LABS: Anion Gap 11.3 mmol/L (3-11); BUN 17 mg/dL (7-18); CO2 23.7 mmol/L (21.0-32.0); Calcium 8.9 mg/dL (8.5-10.1); Calculated LDL 75 mg/dL (<100); Chloride 103 mmol/L (98-107); Cholesterol 199 mg/dL (<200); Glucose 245 mg/dL (74-106); HDL Cholesterol 49 mg/dL (>or=40); Potassium 4.3 mmol/L (3.5-5.1); Sodium 138 mmol/L (136-145); Triglyceride 379 mg/dL (<150)
[2024-08-29 13:06] LABS: Hemoglobin A1C 9.6 % (<5.7)
[2024-08-29 23:01] LABS: PSA, Screening 0.8 ng/mL (<=6.5)
== END 2024-08-29 04:35 | disposition home or self-care (01) ==
LOC: LOS 04:34
PROVIDERS: PCP Nurse Practitioner Family; Visit Provider Nurse Practitioner Family
DX: Z00.00 Encounter for general adult medical examination without abnormal findings (principal); I10 Essential (primary) hypertension; I25.10 Atherosclerotic heart disease of native coronary artery without angina pectoris; E78.2 Mixed hyperlipidemia; E78.1 Pure hyperglyceridemia; E11.8 Type 2 diabetes mellitus with unspecified complications; E11.65 Type 2 diabetes mellitus with hyperglycemia; E66.09 Other obesity due to excess calories; Z68.33 Body mass index [BMI] 33.0-33.9, adult; Z80.42 Family history of malignant neoplasm of prostate
CPT/HCPCS: 36415; 80048; 80061; 84153; 83036

== ENCOUNTER 2024-11-09 00:31 | Outpatient (CLI) | payer MEDICARE, OTHER, SELFPAY ==
--- NOTE | 2024-11-09 07:15 | DI.RAD_ITS ---
Exam(s) XR THORACIC SPINE COMPLETE EXAM: XR THORACIC SPINE COMPLETE CLINICAL HISTORY: low and mid back pain,m54.9. TECHNIQUE: 2D digital imaging was performed. Three views. COMPARISON: No exams were available for comparison FINDINGS: BONES: There is no fracture or destructive lesion. There are endplate osteophytes at the mid to lower thoracic levels mainly projecting toward the right. There is mild narrowing of the anterior disc sp aces in the mid thoracic region. Projecting ALIGNMENT: Within normal limits. DISKS: Interverebral disc spaces are maintained. SOFT TISSUE: Visualized lungs are clear. The multiple surgical clips noted in the upper abdomen. IMPRESSION: Degenerative disc changes. DATA REPOSITORY: RADIATION DOSE DELIVERED:
--- NOTE | 2024-11-09 07:15 | DI.RAD_ITS ---
Exam(s) XR LUMBAR SPINE COMPLETE EXAM: XR LUMBAR SPINE COMPLETE CLINICAL HISTORY: low and mid back pain,m54.50. TECHNIQUE: 2D digital imaging was performed. Five views. COMPARISON: CT CT ABDOMEN PELVIS CTA from 11/21/2021 FINDINGS: BONES: No fracture or destructive lesion. Vertebral body heights are maintained. Partial sacraliza tion of the transverse processes of L5. Endplate at osteophytes noted at all levels. DISKS: Severe narrowing of the L 1 2 through L3-4 disc spaces eccentric toward the left. The L4- 5 disc space is maintained. There is severe narrowing of the L5-S1 disc space. ALIGNMENT: Mild degenerative dextroscoliosis. SOFT TISSUE: Multiple surgical clips. IMPRESSION: Advanced degenerative disc changes and mild scoliosis. DATA REPOSITORY: RADIATION DOSE DELIVERED:
== END 2024-11-09 00:51 ==
LOC: DI 00:32
PROVIDERS: PCP Nurse Practitioner Family; Visit Provider Nurse Practitioner Family
DX: M51.34 Other intervertebral disc degeneration, thoracic region (principal); M41.26 Other idiopathic scoliosis, lumbar region
CPT/HCPCS: 72072; 72110

== ENCOUNTER 2025-01-07 13:50 | Outpatient (CLI) | payer MEDICARE, OTHER, SELFPAY ==
[2025-01-07 14:17] LABS: Hemoglobin A1C 7.9 % (<5.7)
== END 2025-01-07 13:51 | disposition home or self-care (01) ==
LOC: LOS 13:52
PROVIDERS: PCP Nurse Practitioner Family; Visit Provider Nurse Practitioner Family
DX: E11.8 Type 2 diabetes mellitus with unspecified complications (principal); E11.65 Type 2 diabetes mellitus with hyperglycemia
CPT/HCPCS: 36415; 83036